=== PATIENT | female | born 1945 | race Caucasian/White ===

== ENCOUNTER 2024-02-20 19:23 | Inpatient (IN) | payer OTHER ==
[2024-02-20] MEDS ORDERED: ONDANSETRON 4 MG/2 ML VIAL ONE (20:38)
[2024-02-20] MEDS ORDERED: MORPHINE 2 MG/ML SYR ONE (20:39)
[2024-02-20] MEDS ORDERED: NA CHLORIDE 0.9% 500 ML ONE (20:39)
[2024-02-20 20:53] LABS: Absolute Eosinophils 0.3 K/uL (0-0.5); Absolute Lymphocytes (CBC) 0.8 K/uL (0.7-4.9); Absolute Monocytes 1.2 K/uL (0.1-1.3); Absolute Neutrophil 16.8 K/uL (1.8-8.0); Eosinophils % 1.6 % (0-4.4); Hematocrit 48.5 % (36.0-45.0); Hemoglobin 16.2 g/dL (12.0-15.0); MCH 30.9 pg (27.0-35.0); MCHC 33.4 g/dL (32.0-36.0); MCV 92.7 fL (80-100); MPV 7.4 fL (7.6-11.3); Monocytes % 6.3 % (3.3-12.3); Neutrophils % 88.1 % (41.7-73.7); Platelets 341 thou/uL (152-406); RBC Red Blood Cell Count 5.24 M/uL (3.86-4.86); Red Cell Distribution Width 14.4 % (12.1-15.2)
[2024-02-20 21:14] LABS: Albumin 3.2 g/dL (3.4-5.0); Albumin/Globulin Ratio 0.7 (1.1-1.8); Anion Gap 11.5 mEq/L (5.0-15.0); Bilirubin Total 0.4 mg/dL (0.2-1.0); Globulin 4.6 g/dL (2.3-3.5); Potassium 3.5 mEq/L (3.5-5.1); Protein, Total 7.8 g/dL (6.4-8.2)
--- NOTE | 2024-02-20 23:42 | RAD REPORT ---
EXAM DESCRIPTION: Abdomen Pelvis W Contrast CLINICAL HISTORY: 78 years Female Abdominal pain. COMPARISON: None. TECHNIQUE: Images were obtained in axial, coronal and sagittal planes. Intravenous contrast administration. This exam was performed according to our departmental dose-optimization program which includes use of Automated Exposure Control, adjustment of the mA and/or kV according to patient size and/or use of it erative reconstruction technique. FINDINGS: Artifact in the region of right lobe of liver related to positioning of the upper extremities. No vis ualization of gallbladder likely prior cholecystectomy. Mild intrahepatic biliary dilatation centrally. Marked extrahepatic biliary dilatation. Common hepatic duct measures 2 cm. Common bile bernice t measures 1.9 cm proximally. No dilatation pancreatic duct. Tiny pancreatic cysts. Enhancing nodular foci seen involving this spleen. The largest measures 1.6 cm. The findings may be related to multiple hemangiomas however hypervascular metastatic lesions not excluded. Unremarkable portal vein. No obstructing renal or ureteral calculi bilaterally. No hydronephrosis bilaterally. Bladder divertic philip anteriorly. Deviation uterus to the right. Possible fluid within endometrial cavity. 2 cm right ovarian cyst. This finding is thought to be benign. No further follow-up needed. Appendix not well identified however no secondary signs for appendicitis. No bowel obstruction, perfo ration, or inflammation. Marked constipation distal left colon. No acute osseous abnormality. Superior endplate depression of T8, T11, and T12 vertebral bodies consi stent with compression fractures of indeterminate age. Chronic parenchymal stranding lower lungs bilaterally. No dilatation of the abdominal aorta. Vascular calcification. No adenopathy or abnormal fluid collect ions seen. IMPRESSION: 1. Marked extrahepatic biliary dilatation. Suspected prior cholecystectomy. Correlation with MRCP w ould be suggested to further exclude choledocholithiasis or stricture. 2. Multiple enhancing nodular foci involving the spleen. The findings may be related to multiple he mangiomas however hypervascular metastatic lesions not excluded. Correlation with magnetic resonance study of the spleen suggested for further characterization. 3. Possible fluid within endometrial cavity. Correlation with pelvic ultrasound suggested for furth er characterization. 4. Marked constipation distal left colon. Electronically signed by: Madeline Ng MD 02/20/2024 11:38 PM [facility] Due to temporary technical issues with the PACS/Urgent Career reporting system, reports are being desire d by the in-house radiologist without review as a courtesy to ensure prompt reporting the interpreting radiologist is fully responsible for the content of the report. Transcribed Date/Time: 02/20/2024 11:42 PM
[2024-02-20 23:54] LABS: Sqamous Epithelial <5 /HPF (None Seen); Urine Bacteria None Seen /HPF (<20); Urine Bilirubin NEGATIVE (Negative); Urine Blood Trace (Negative); Urine Clarity Clear (Clear); Urine Color Colorless (Yellow); Urine Culture Reflex Order NOT NEEDED; Urine Glucose NEGATIVE (Negative); Urine Ketones NEGATIVE (Negative); Urine Microscopic Reflex YN ORDER UMIC; Urine Mucus Slight /HPF (None Seen); Urine Nitrite NEGATIVE (Negative); Urine Protein NEGATIVE (Negative); Urine RBC None Seen /HPF (None Seen); Urine Urobilinogen Normal (Normal); Urine WBC <5 /HPF (<5); Urine pH 5.5 (5.0-7.0)
[2024-02-20 23:55] LABS: Specific Gravity > 1.030 (1.005-1.030)
--- NOTE | 2024-02-21 00:35 | ER ---
Nurse's Notes [facility] Name: Desi Gómez Age: 78 yrs Sex: Female : 1945 Arrival Date: 02/20/2024 Time: 19:23 Bed 14 Private MD: Diagnosis: Elevated white blood cell count;CBD dilation;Constipation Presentation: 02/19 19:23 Chief complaint: EMS states: Pt reports abdominal pain in the lower abdomen that jb4 started after lunch. 19:23 Coronavirus screen: At this time, the client does not indicate any symptoms associated jb4 with coronavirus-19. Ebola Screen: No symptoms or risks identified at this time. Initial Sepsis Screen: Does the patient meet any 2 criteria? HR > 90 bpm. Yes Does the patient have a suspected source of infection? No. Patient's initial sepsis screen is negative. Risk Assessment: Do you want to hurt yourself or someone else? Patient reports no desire to harm self or others. Onset of symptoms was February 20, 2024. Transition of care: patient was not received from another setting of care. 19:23 Method Of Arrival: EMS: [facility] jb4 19:23 Acuity: MACRINA 3 jb4 Historical: - Allergies: 19:23 PENICILLINS; jb4 - Immunization history:: Adult Immunizations up to date. - Infectious Disease History:: Denies. - Social history:: Smoking status: Patient denies any tobacco usage or history of. Screenin:30 [facility] ED Fall Risk Assessment (Adult) History of falling in the last 3 months, jb4 including since admission No falls in past 3 months (0 pts) Confusion or Disorientation No (0 pts) Intoxicated or Sedated No (0 pts) Impaired Gait No (0 pts) Mobility Assist Device Used No (0 pt) Altered Elimination No (0 pt) Score/Fall Risk Level 0 - 2 = Low Risk Oriented to surroundings, Maintained a safe environment. Abuse screen: Denies threats or abuse. Nutritional screening: No deficits noted. Tuberculosis screening: No symptoms or risk factors identified. Assessment: 19:23 General: Appears in no apparent distress. comfortable, Behavior is calm, cooperative, jb4 appropriate for age. Pain: Complains of pain in right lower quadrant Pain does not radiate. Pain currently is 7 out of 10 on a pain scale. Neuro: Level of Consciousness is awake, alert, obeys commands, Oriented to person, place, time, situation. Cardiovascular: Patient's skin is warm and dry. Respiratory: Airway is patent Respiratory effort is even, unlabored, Respiratory pattern is regular, symmetrical. GI: No signs and/or symptoms were reported involving the gastrointestinal system. : No signs and/or symptoms were reported regarding the genitourinary system. EENT: No signs and/or symptoms were reported regarding the EENT system. Derm: Skin is intact, Skin is pink, warm \T\ dry. 20:30 Reassessment: Patient appears in no apparent distress at this time. Patient and/or jb4 family updated on plan of care and expected duration. Pain level reassessed. Patient is alert, oriented x 3, equal unlabored respirations, skin warm/dry/pink. 21:38 Reassessment: Pt cleaned and brief changed. Small amount of nikkie blood vaginal jb4 discharge noted. Provider notified. 22:45 Reassessment: No changes from previously documented assessment. Patient and/or family br2 updated on plan of care and expected duration. Pain level reassessed. Patient is alert, oriented x 3, equal unlabored respirations, skin warm/dry/pink. 02/20 00:30 Reassessment: COLLECT URINE VIA STRAIGHT CATH. UPON CLEANING PATIENT'S VAGINAL br2 AREA,...THERE WAS BLOOD TINGED ON WIPE WHEN CLEANING. PUREWICK IN PLACE WITH LOW SUCTION TO WALL. 01:56 Reassessment: PROVIDER NOTIFED. br2 Vital Signs: 02/19 19:23 BP 133 / 69; Pulse 96; Resp 16; Temp 98.4(O); Pulse Ox 100% on R/A; Weight 59.87 kg jb4 (R); Height 5 ft. 1 in. (R); 23:15 BP 133 / 62; Pulse 88; Resp 18 S; Pulse Ox 95% on R/A; br2 02/20 02:03 BP 113 / 56; Pulse 76; Resp 18 S; Temp 97.2(TE); Pulse Ox 94% on R/A; br2 02/19 19:23 Body Mass Index 24.94 (59.87 kg, 154.94 cm) jb4 ED Course: 02/19 19:23 Patient arrived in ED. jb4 19:23 Mariana Sanchez FNP-C is PHCP. kb 19:23 Daniele Mason MD is Attending Physician. kb 20:10 Missed attempt(s): 20 gauge in right forearm. 22 gauge in right forearm. Bleeding jb4 controlled, band aid applied, catheter tip intact. 20:15 Triage completed. jb4 20:30 Patient has correct armband on for positive identification. Bed in low position. Call jb4 light in reach. Side rails up X 1. Provided Education on: plan of care. 20:46 Robbin Joe, RN is Primary Nurse. jb4 22:48 CT Abd/Pelvis - IV Contrast Only In Process Unspecified. EDMS 02/20 00:34 Benedict Pedroza MD is Hospitalizing Provider. kb 02:57 No provider procedures requiring assistance completed. Patient admitted, IV remains in br2 place. Administered Medications: 02/19 20:58 Drug: Ondansetron IVP 4 mg IVP once; over 2 minutes Route: IVP; Site: right antecubital;jb4 22:00 Follow up: Response: No adverse reaction br2 20:58 Drug: morphine IVP or IV 2 mg IVP once over 4 mins Route: IVP; Infused Over: 4 mins; jb4 Site: right antecubital; 22:00 Follow up: Response: No adverse reaction br2 20:58 Drug: NS 0.9% IV 500 ml 500 ml IV at 1 bolus once; to be given as a bolus over 30 jb4 minutes Volume: 500 ml; Route: IV; Rate: 1 bolus; Site: right antecubital; 21:30 Follow up: IV Status: Completed infusion; IV Intake: 500ml br2 Medication: 20:30 VIS not applicable for this client. jb4 Intake: 21:30 IV: 500ml; Total: 500ml. br2 Outcome: 02/20 00:34 Decision to Hospitalize by Provider. kb 02:57 Admitted to Med/surg accompanied by tech, via stretcher, br2 02:57 Condition: improved 02:57 Instructed on the need for admit, Demonstrated understanding of instructions, 02:58 Patient left the ED. br2 Signatures: Dispatcher [employer] EDMA Mariana Sanchez, RAMESH SALES OFFICE COORDINATOR-Robbin Rivas RN RN jb4 Nikia Gomez RN RN br2
--- NOTE | 2024-02-21 00:35 | EDPHYS ---
Physician Documentation [facility] Name: Desi Gómez Age: 78 yrs Sex: Female : 1945 Arrival Date: 02/20/2024 Time: 19:23 Bed 14 Private MD: ED Physician Daniele Mason HPI: 02/19 22:13 This 78 yrs old Female presents to ER via EMS with complaints of Abdominal Pain. kb 22:13 Pt is a 78 year old female who presents for RLQ pain and nausea that started after kb lunch. Denies fever, vomiting, diarrhea. No alleviating or aggravating factors. . Historical: - Allergies: 19:23 PENICILLINS; jb4 - Immunization history:: Adult Immunizations up to date. - Infectious Disease History:: Denies. - Social history:: Smoking status: Patient denies any tobacco usage or history of. ROS: 22:14 Constitutional: As per HPI kb Exam: 22:14 Constitutional: This is a well developed, well nourished patient who is awake, alert, kb and in no acute distress. Head/Face: Normocephalic, atraumatic. ENT: Moist Mucous membranes Cardiovascular: Regular rate Respiratory: Respirations even and unlabored. No increased work of breathing. Talking in full sentences Skin: Warm, dry with normal turgor. Normal color. MS/ Extremity: Pulses equal, no cyanosis. Neurovascular intact. Full, normal range of motion. Neuro: Awake and alert, GCS 15, oriented to person, place, time, and situation. 22:14 Abdomen/GI: Inspection: abdomen appears normal, Bowel sounds: normal, Palpation: soft, in all quadrants, moderate abdominal tenderness, in the right lower quadrant, Vital Signs: 19:23 BP 133 / 69; Pulse 96; Resp 16; Temp 98.4(O); Pulse Ox 100% on R/A; Weight 59.87 kg jb4 (R); Height 5 ft. 1 in. (R); 23:15 BP 133 / 62; Pulse 88; Resp 18 S; Pulse Ox 95% on R/A; br2 02/20 02:03 BP 113 / 56; Pulse 76; Resp 18 S; Temp 97.2(TE); Pulse Ox 94% on R/A; br2 02/19 19:23 Body Mass Index 24.94 (59.87 kg, 154.94 cm) jb4 MDM: 02/19 19:24 Medical Screening Exam initiated kb 22:14 Data reviewed: vital signs, nurses notes. 02/20 00:31 Differential diagnosis: appendicitis, non-specific abd pain, pancreatitis, urinary kb tract infection. 00:32 Consideration of Admission/Observation Patient was admitted/placed on observation. kb Escalation of care including admission/observation considered. Management of patient was discussed with the following: Hospitalist: Dr Pedroza accepts pt for admission. Historians other than the Patient: EMS: [facility]. Counseling: I had a detailed discussion with the patient and/or guardian regarding the historical points, exam findings, and any diagnostic results supporting the discharge/admit diagnosis, lab results, radiology results, the need for further work-up and treatment in the hospital. 02/19 19:24 Order name: CBC with Diff; Complete Time: 21:08 kb 02/19 19:24 Order name: CMP; Complete Time: 21:15 kb 02/19 19:24 Order name: Lipase; Complete Time: 21:15 kb 02/19 19:24 Order name: Urinalysis w/ reflexes; Complete Time: 23:56 kb 02/20 00:48 Order name: Urinalysis w/ reflexes EDMS 02/20 00:48 Order name: CBC with Automated Diff EDMS 02/20 00:48 Order name: CBC with Automated Diff EDMS 02/20 00:48 Order name: Comprehensive Metabolic Panel EDMS 02/20 00:48 Order name: Comprehensive Metabolic Panel EDMS 02/19 19:24 Order name: CT Abd/Pelvis - IV Contrast Only 02/19 19:24 Order name: IV Saline Lock; Complete Time: 21:27 kb 02/19 19:24 Order name: Labs collected and sent; Complete Time: 21:27 kb Administered Medications: 02/19 20:58 Drug: Ondansetron IVP 4 mg IVP once; over 2 minutes Route: IVP; Site: right antecubital;jb4 22:00 Follow up: Response: No adverse reaction br2 20:58 Drug: morphine IVP or IV 2 mg IVP once over 4 mins Route: IVP; Infused Over: 4 mins; jb4 Site: right antecubital; 22:00 Follow up: Response: No adverse reaction br2 20:58 Drug: NS 0.9% IV 500 ml 500 ml IV at 1 bolus once; to be given as a bolus over 30 jb4 minutes Volume: 500 ml; Route: IV; Rate: 1 bolus; Site: right antecubital; 21:30 Follow up: IV Status: Completed infusion; IV Intake: 500ml br2 Disposition Summary: 02/21/24 00:34 Hospitalization Ordered Notes: Hospitalization Status: Observation kb Provider: Benedict Pedroza Location: Telemetry/MedSurg (observation) kb Condition: Stable kb Problem: new kb Symptoms: are unchanged kb Bed/Room Type: Standard Room Assignment: 209(02/21/24 01:30) rv1 Diagnosis - Elevated white blood cell count kb - CBD dilation kb - Constipation kb Forms: - Medication Reconciliation Form kb - SBAR form kb - Leadership Thank You Letter kb Addendum: 02/23/2024 20:27 I was immediately available for consultation during this patient's visit. I did not e c2 personally see the patient or discuss the patient with the NURIA. . Signatures: Dispatcher [employer] Mariana Brown, SUPERVISOR PRESSING DEPARTMENT-C SUPERVISOR PRESSING DEPARTMENT-CkRobbin Rodrigues, RN RN jb4 Antonella Esteves rv1 Daniele Mason MD MD ec2 Nikia Gomez RN br2 Corrections: (The following items were deleted from the chart) 02/20 01:30 00:34 kb rv1
--- NOTE | 2024-02-21 01:21 | P.HP ---
Certification for Inpatient Patient admitted to: Observation With expected LOS: <2 Midnights Practitioner: I am a practitioner with admitting privileges, knowledge of patient current condition, hospital course, and medical plan of care. Services: Services provided to patient in accordance with Admission requirements found in Title 42 Section 412.3 of the Code of Federal Regulations Patient History Date of Service: 02/21/24 Reason for admission: Abdominal pain History of Present Illness: 78 yrs old Female with past medical history of hypertension, hyperlipidemia , history of CVA , history of fall status post fusion of spine presents to ER with complaints of Abdominal Pain. Pain is located mostly in the right lower quadrant associated with nausea started after lunch. Cramping in type. Intermittent. Denies fever, vomiting, diarrhea. No alleviating or aggravating factors. Has a previous history of cholecystectomy. Patient was seen in the ER and was had a CT which showed dilated CBD and was admitted for further management. Allergies Unable to Assess Allergy (Unverified 02/21/24 00:52) Home medications list reviewed: Yes Home Medications: Acetaminophen [Tylenol Extra Strength] 1,000 mg PO Q8HP PRN 02/21/24 Ascorbic Acid [Vitamin C] 500 mg PO BID 02/21/24 Aspirin Chewable [Aspirin Chewable*] 81 mg PO DAILY 02/21/24 Atorvastatin Calcium [Lipitor] 20 mg PO BEDTIME 02/21/24 Buspirone HCl 15 mg PO BID 02/21/24 Buspirone HCl [Buspar] 5 mg PO BID 02/21/24 Calcium Carbonate [Tums Regular] 500 mg PO AC 02/21/24 Carboxymethylcellulose Sodium [Artificial Tears] 2 drops EACH EYE DAILY 02/21/24 Clopidogrel Bisulfate [Plavix] 75 mg PO DAILY 02/21/24 Divalproex Sodium 250 mg PO TID 02/21/24 Divalproex Sodium [Depakote] 125 mg PO TID 02/21/24 Isosorbide Dinitrate 30 mg PO DAILY 02/21/24 Lactulose [Cephulac] 20 gm PO DAILY 02/21/24 Lidocaine 4% Patch [Lidoderm 5% Patch] 1 patch TD DAILY 02/21/24 Lidocaine 4% Patch [Lidoderm 5% Patch] 1 patch TD Q12HP PRN 02/21/24 Multivitamin with Minerals [One Daily Plus Minerals] 1 each PO DAILY 02/21/24 Ondansetron HCl 4 mg PO Q8HP PRN 02/21/24 PHENYTOIN ER Cap [Dilantin ER Cap] 100 mg PO BID 02/21/24 Potassium Chloride 20 meq PO BID 02/21/24 Promethazine Tab [Phenergan] 25 mg PO Q6HP PRN 02/21/24 Sertraline [Zoloft] 200 mg PO DAILY 02/21/24 Spironolactone [Aldactone] 25 mg PO DAILY 02/21/24 levETIRAcetam [Keppra Tab] 500 mg PO BID 02/21/24 traMADol HCL [Ultram] 50 mg PO Q12HP PRN 02/21/24 - Past Medical/Surgical History Past Medical History: Reviewed- Non-Contributory -: Hypertension, hyperlipidemia, history of CVA Past Surgical History: Reviewed- Non-Contributory -: Cholecystectomy - Family History Family History: Reviewed- Non-Contributory - Social History Smoking Status: Never smoker Review of Systems 10-point ROS is otherwise unremarkable Physical Examination - Vital Signs Temperature: 97.8 F Blood Pressure: 138/76 Pulse: 74 Respirations: 18 Pulse Ox (%): 96 - Physical Exam General: Alert, In no apparent distress, Cooperative HEENT: Atraumatic, Normocephalic Neck: Supple, No Thyromegaly Respiratory: Clear to auscultation bilaterally, Normal air movement Cardiovascular: No edema, Regular rate/rhythm, Normal S1 S2 Capillary refill: <2 Seconds Gastrointestinal: Soft and benign, W/out hepatosplenomegaly, Other (Right Lower quadrant tenderness), Tenderness Musculoskeletal: No clubbing, No swelling Integumentary: No rashes Neurological: Other (Alert, Awake ) Lymphatics: No axilla or inguinal lymphadenopathy - Studies Laboratory Data (last 24 hrs) 02/20/24 02/20/24 20:40 20:40 WBC 19.10 H Hgb 16.2 H Hct 48.5 H Plt Count 341 Sodium 140 Potassium 3.5 BUN 18 Creatinine 0.53 L Glucose 122 H Total Bilirubin 0.4 AST 18 ALT 19 Alkaline Phosphatase 92 Lipase 20 Assessment and Plan - Plan Intractable abdominal pain Dilated CBD Constipation Right lower quadrant pain CT findings noted Marked extrahepatic biliary dilatation. Suspected prior cholecystectomy. MRCP to further exclude choledocholithiasis or stricture. Multiple enhancing nodular foci involving the spleen. Possible multiple hemangiomas however hypervascular metastatic lesions not excluded. magnetic resonance study of the spleen for further characterization. Possible fluid within endometrial cavity. pelvic ultrasound Awaiting further clinical improvement Marked constipation distal left colon Started on lactulose Hypertension Antihypertensives titrated Continue home medications and titrate as needed Hyperlipidemia Continue statin GI/DVT prophylaxis Advanced directive full code Discharge Plan: Detention Plan to discharge in: 48 Hours - Advance Directives Does patient have a Living Will: No Does patient have a Durable POA for Healthcare: No - Code Status/Comfort Care Code Status: Full Code Time Spent Managing Pts Care (In Minutes): 48
[2024-02-21] MEDS: D5 0.45 NS 1,000 ML IV SCH (05:03)
[2024-02-21 05:13] VITALS: BMI 24.9
--- NOTE | 2024-02-21 08:21 | RAD REPORT ---
EXAMINATION: US PELVIS TRANSABDOMINAL WITH DOPPLER CLINICAL INDICATION: Abdominal Pain TECHNIQUE: Real-time ultrasonography of the pelvis was performed transabdominally. Color and spectral Doppler evaluation of the ovaries was performed. COMPARISON: CT dated 02/20/2024 FINDINGS: UTERUS AND CERVIX: The uterus measures 7.9 x 3.9 x 3.8 cm (cervix to fundus x AP x transverse). Numerous calcifications are seen in the myometrium. The endometrium appears to contain internal fluid. The major thickness is 7 mm. The right ovary is not well seen due to bowel gas. LEFT OVARY: Normal The left ovary measures 2.0 x 1.7 x 1.6 cm. Normal Color and spectral Doppler ev aluation of the left ovary.. FREE FLUID: No free fluid. ADDITIONAL FINDINGS: IMPRESSION: Nonvisualized right ovary due to bowel gas. Endometrial dilatation suspected with fluid. In this age group this is potentially pathologic. Follow -up hysteroscopy assessment would be advised.
[2024-02-21 08:22] LABS: Absolute Basophils 0.1 K/uL (0-0.5); Absolute Eosinophils 0.2 K/uL (0-0.5); Absolute Lymphocytes (CBC) 2.1 K/uL (0.7-4.9); Absolute Monocytes 1.1 K/uL (0.1-1.3); Basophils % 0.7 % (0-1.3); Eosinophils % 1.9 % (0-4.4); Hematocrit 38.6 % (36.0-45.0); Hemoglobin 13.3 g/dL (12.0-15.0); Lymphocytes % 18.7 % (15.3-44.8); MCH 31.6 pg (27.0-35.0); MCHC 34.5 g/dL (32.0-36.0); MCV 91.6 fL (80-100); MPV 7.2 fL (7.6-11.3); Monocytes % 9.6 % (3.3-12.3); Neutrophils % 69.1 % (41.7-73.7); Nucleated Red Blood Cells % 0.1 % (0-0); Platelets 310 thou/uL (152-406); RBC Red Blood Cell Count 4.22 M/uL (3.86-4.86); Red Cell Distribution Width 14.5 % (12.1-15.2)
[2024-02-21] MEDS: CEFTRIAXONE 1,000 MG in NA CHLORIDE 0.9% 50 ML IVPB SCH (08:34)
[2024-02-21 08:35] LABS: Albumin 2.3 g/dL (3.4-5.0); Albumin/Globulin Ratio 0.6 (1.1-1.8); Alkaline Phosphatase 68 U/L (45-117); Anion Gap 7.5 mEq/L (5.0-15.0); BUN Blood Urea Nitrogen 12 mg/dL (7-18); Bicarbonate 26 mEq/L (21-32); Bilirubin Total 0.4 mg/dL (0.2-1.0); Globulin 3.7 g/dL (2.3-3.5); Glomerular Filtration Rate 102 ml/min (=/>90); Glucose Level 119 mg/dL (74-106); Lipase 15 U/L (13-75); Potassium 3.5 mEq/L (3.5-5.1); Sodium Level 141 mEq/L (136-145)
[2024-02-21] MEDS: ENOXAPARIN 40 MG/0.4 ML SQ SCH (09:00)
[2024-02-21 09:14] LABS: ALT/SGPT < 14 U/L (13-56); AST/SGOT < 10 U/L (15-37)
--- NOTE | 2024-02-21 14:55 | RAD REPORT ---
EXAMINATION: MR CHOLANGIOGRAM CLINICAL INDICATION: Abdominal pain TECHNIQUE: Magnetic resonance cholangiopancreatogram was performed. 3D MIP reconstruction done. COMPARISON: CT abdomen February 20, 2024 FINDINGS: Cholecystectomy. Marked dilatation of the common hepatic and common bile ducts. Abrupt transition to a small distal common bile duct. No periampullary mass visualized. Normal pancreatic duct. Splenic lesions are again demonstrated. Further evaluation with ultrasound may be helpful IMPRESSION: Marked dilatation of the common bile common hepatic ducts secondary to stricture
[2024-02-21] MEDS: MORPHINE 2 MG/ML SYR IV PRN (19:37)
[2024-02-21] MEDS: HYDROCODONE/APAP 5/325 MG TAB PO PRN (23:29)
[2024-02-21] MEDS: ONDANSETRON 4 MG/2 ML VIAL IV PRN (23:35)
[2024-02-22 04:56] LABS: Absolute Basophils 0.1 K/uL (0-0.5); Absolute Eosinophils 0.2 K/uL (0-0.5); Absolute Lymphocytes (CBC) 1.8 K/uL (0.7-4.9); Absolute Monocytes 0.7 K/uL (0.1-1.3); Absolute Neutrophil 5.3 K/uL (1.8-8.0); Basophils % 0.8 % (0-1.3); Eosinophils % 2.8 % (0-4.4); Hematocrit 37.7 % (36.0-45.0); Hemoglobin 13.2 g/dL (12.0-15.0); Lymphocytes % 21.9 % (15.3-44.8); MCH 32.2 pg (27.0-35.0); MCHC 35.1 g/dL (32.0-36.0); MCV 91.9 fL (80-100); MPV 7.3 fL (7.6-11.3); Monocytes % 8.8 % (3.3-12.3); Neutrophils % 65.7 % (41.7-73.7); Nucleated Red Blood Cells % 0.1 % (0-0); Platelets 298 thou/uL (152-406); Red Cell Distribution Width 14.2 % (12.1-15.2)
[2024-02-22 05:07] LABS: AST/SGOT 11 U/L (15-37); Albumin 2.3 g/dL (3.4-5.0); Albumin/Globulin Ratio 0.6 (1.1-1.8); Alkaline Phosphatase 68 U/L (45-117); Anion Gap 7.5 mEq/L (5.0-15.0); BUN Blood Urea Nitrogen 13 mg/dL (7-18); Bicarbonate 26 mEq/L (21-32); Bilirubin Total 0.3 mg/dL (0.2-1.0); Globulin 3.7 g/dL (2.3-3.5); Glomerular Filtration Rate 104 ml/min (=/>90); Glucose Level 97 mg/dL (74-106); Potassium 3.5 mEq/L (3.5-5.1); Sodium Level 141 mEq/L (136-145)
[2024-02-22 05:09] LABS: ALT/SGPT < 14 U/L (13-56)
[2024-02-22] MEDS: ACETAMINOPHEN 325 MG TABLET PO PRN (08:30)
[2024-02-22] MEDS: POTASSIUM CL SA 10 MEQ TAB PO ONE (08:31)
[2024-02-22 09:53] VITALS: O2SAT 96
[2024-02-22 11:57] VITALS: BP 138/60; TEMP 98.3
--- NOTE | 2024-02-22 13:20 | P.DS ---
Admission Date: 02/21/24 Discharge Date: 02/22/24 Disposition: TRANSFER TO [facility] Discharge Condition: GOOD Reason for Admission: Abdominal pain Brief History of Present Illness: 78 yrs old Female with past medical history of hypertension, hyperlipidemia , history of CVA , history of fall status post fusion of spine presents to ER with complaints of Abdominal Pain. Pain is located mostly in the right lower quadrant associated with nausea started after lunch. Cramping in type. Intermittent. Denies fever, vomiting, diarrhea. No alleviating or aggravating factors. Has a previous history of cholecystectomy. Patient was seen in the ER and was had a CT which showed dilated CBD and was admitted for further management. Hospital Course: Problem list Intractable abdominal pain Dilated CBD Constipation Right lower quadrant pain Multiple enhancing nodular foci involving the spleen. Possible fluid within endometrial cavity. Marked constipation distal left colon Hypertension Hyperlipidemia Patient was admitted to the hospital for abdominal pain, her CT abdomen pelvis showed marked extrahepatic biliary dilatation with prior cholecystectomy. Also noted multiple enhancing nodular foci seen in the spleen which may be related to hemangiomas however metastatic lesions are not excluded. Possible fluid within the endometrial cavity. Correlation with pelvic ultrasound suggested. MRCP was performed which showed marked dilatation of the common bile duct, common hepatic duct secondary to stricture with abrupt transition to small distal common bile duct. Pelvic ultrasound showed endometrial dilatation suspected with fluid. In this age group this is potentially pathologic. Follow-up hysteroscopy would be advised. Patient's abdominal pain resolved overnight, she has been tolerating a regular diet. Her LFTs, T. bili, lipase are all normal and have been for 3 days. Case was discussed with GI who recommended obtaining a CA 199 antigen to be sent off prior to discharge on 02/21 which will take 5-7 business days to result and follow-up with him outpatient for further evaluation of the extrahepatic, CBD dilatation with stricture. Information for Dr. Brown's office provided in discharge packet. Splenic lesions were again demonstrated on the MRI, further evaluation with ultrasound of the spleen can be made outpatient. Patient will also need to follow-up with gynecology to arrange for possible hysteroscopy given pelvic ultrasound showing endometrial dilatation with suspected fluid which could be pathologic. These findings were discussed with patient's daughter Ms. Weeks. Patient has remained afebrile throughout hospitalization and is stable for discharge back to [facility] where she resides at this time. Recommend repeat CMP in 1 week to evaluate LFTs, T. bili. Continue home medications as previously prescribed If patient begins to experience return or worsening of abdominal symptoms return to hospital for further evaluation. CT abdomen pelvis 02/19 Artifact in the region of right lobe of liver related to positioning of the upper extremities. No visualization of gallbladder likely prior cholecystectomy. Mild intrahepatic biliary dilatation centrally. Marked extrahepatic biliary dilatation. Common hepatic duct measures 2 cm. Common bile duct measures 1.9 cm proximally. No dilatation pancreatic duct. Tiny pancreatic cysts. Enhancing nodular foci seen involving this spleen. The largest measures 1.6 cm. The findings may be related to multiple hemangiomas however hypervascular metastatic lesions not excluded. Unremarkable portal vein. No obstructing renal or ureteral calculi bilaterally. No hydronephrosis bilaterally. Bladder diverticula anteriorly. Deviation uterus to the right. Possible fluid within endometrial cavity. 2 cm right ovarian cyst. This finding is thought to be benign. No further follow-up needed. Appendix not well identified however no secondary signs for appendicitis. No bowel obstruction, perforation, or inflammation. Marked constipation distal left colon. No acute osseous abnormality. Superior endplate depression of T8, T11, and T12 vertebral bodies consistent with compression fractures of indeterminate age. Chronic parenchymal stranding lower lungs bilaterally. No dilatation of the abdominal aorta. Vascular calcification. No adenopathy or abnormal fluid collections seen. IMPRESSION: 1. Marked extrahepatic biliary dilatation. Suspected prior cholecystectomy. Correlation with MRCP would be suggested to further exclude choledocholithiasis or stricture. 2. Multiple enhancing nodular foci involving the spleen. The findings may be related to multiple hemangiomas however hypervascular metastatic lesions not excluded. Correlation with magnetic resonance study of the spleen suggested for further characterization. 3. Possible fluid within endometrial cavity. Correlation with pelvic ultrasound suggested for further characterization. 4. Marked constipation distal left colon. MRCP 02/20 FINDINGS: Cholecystectomy. Marked dilatation of the common hepatic and common bile ducts. Abrupt transition to a small distal common bile duct. No periampullary mass visualized. Normal pancreatic duct. Splenic lesions are again demonstrated. Further evaluation with ultrasound may be helpful IMPRESSION: Marked dilatation of the common bile common hepatic ducts secondary to stricture Pelvic ultrasound 02/19 UTERUS AND CERVIX: The uterus measures 7.9 x 3.9 x 3.8 cm (cervix to fundus x AP x transverse). Numerous calcifications are seen in the myometrium. The endometrium appears to contain internal fluid. The major thickness is 7 mm. The right ovary is not well seen due to bowel gas. LEFT OVARY: Normal The left ovary measures 2.0 x 1.7 x 1.6 cm. Normal Color and spectral Doppler evaluation of the left ovary.. FREE FLUID: No free fluid. ADDITIONAL FINDINGS: IMPRESSION: Nonvisualized right ovary due to bowel gas. Endometrial dilatation suspected with fluid. In this age group this is potentially pathologic. Follow-up hysteroscopy assessment would be advised. Vital Signs/Physical Exam: Temp Pulse Resp BP Pulse Ox 98.3 F 90 12 138/60 96 02/22/24 11:55 02/22/24 11:55 02/22/24 11:55 02/22/24 11:55 02/22/24 11:55 General: Alert, In no apparent distress, Oriented x3 HEENT: Atraumatic, PERRLA Neck: Supple, JVD not distended Respiratory: Clear to auscultation bilaterally, Normal air movement Cardiovascular: Regular rate/rhythm, Normal S1 S2 Gastrointestinal: Normal bowel sounds, No tenderness Musculoskeletal: No tenderness, Contractures (Left arm contracted) Integumentary: No rashes Neurological: Normal speech, Normal tone, Normal affect Laboratory Data at Discharge: WBC 8.00 thou/uL (4.3-10.9) 02/22/24 04:28 Hgb 13.2 g/dL (12.0-15.0) 02/22/24 04:28 Hct 37.7 % (36.0-45.0) 02/22/24 04:28 Plt Count 298 thou/uL (152-406) 02/22/24 04:28 Sodium 141 mEq/L (136-145) 02/22/24 04:28 Potassium 3.5 mEq/L (3.5-5.1) 02/22/24 04:28 BUN 13 mg/dL (7-18) 02/22/24 04:28 Creatinine 0.35 mg/dL (0.55-1.02) L 02/22/24 04:28 Glucose 97 mg/dL (74-106) 02/22/24 04:28 Total Bilirubin 0.3 mg/dL (0.2-1.0) 02/22/24 04:28 AST 11 U/L (15-37) L 02/22/24 04:28 ALT < 14 U/L (13-56) 02/22/24 04:28 Alkaline Phosphatase 68 U/L (45-117) 02/22/24 04:28 Lipase 15 U/L (13-75) 02/21/24 08:08 Home Medications: Acetaminophen [Tylenol Extra Strength] 1,000 mg PO Q8HP PRN 02/21/24 Ascorbic Acid [Vitamin C] 500 mg PO BID 02/21/24 Aspirin Chewable [Aspirin Chewable*] 81 mg PO DAILY 02/21/24 Atorvastatin Calcium [Lipitor] 20 mg PO BEDTIME 02/21/24 Buspirone HCl 15 mg PO BID 02/21/24 Buspirone HCl [Buspar] 5 mg PO BID 02/21/24 Calcium Carbonate [Tums Regular] 500 mg PO AC 02/21/24 Carboxymethylcellulose Sodium [Artificial Tears] 2 drops EACH EYE DAILY 02/21/24 Clopidogrel Bisulfate [Plavix] 75 mg PO DAILY 02/21/24 Divalproex Sodium 250 mg PO TID 02/21/24 Divalproex Sodium [Depakote] 125 mg PO TID 02/21/24 Isosorbide Dinitrate 30 mg PO DAILY 02/21/24 Lactulose [Cephulac] 20 gm PO DAILY 02/21/24 Lidocaine 4% Patch [Lidoderm 5% Patch] 1 patch TD DAILY 02/21/24 Lidocaine 4% Patch [Lidoderm 5% Patch] 1 patch TD Q12HP PRN 02/21/24 Multivitamin with Minerals [One Daily Plus Minerals] 1 each PO DAILY 02/21/24 Ondansetron HCl 4 mg PO Q8HP PRN 02/21/24 PHENYTOIN ER Cap [Dilantin ER Cap] 100 mg PO BID 02/21/24 Potassium Chloride 20 meq PO BID 02/21/24 Promethazine Tab [Phenergan] 25 mg PO Q6HP PRN 02/21/24 Sertraline [Zoloft] 200 mg PO DAILY 02/21/24 Spironolactone [Aldactone] 25 mg PO DAILY 02/21/24 levETIRAcetam [Keppra Tab] 500 mg PO BID 02/21/24 traMADol HCL [Ultram] 50 mg PO Q12HP PRN 02/21/24 Physician Discharge Instructions: Patient was admitted to the hospital for abdominal pain, her CT abdomen pelvis showed marked extrahepatic biliary dilatation with prior cholecystectomy. Also noted multiple enhancing nodular foci seen in the spleen which may be related to hemangiomas however metastatic lesions are not excluded. Possible fluid within the endometrial cavity. Correlation with pelvic ultrasound suggested. MRCP was performed which showed marked dilatation of the common bile duct, common hepatic duct secondary to stricture with abrupt transition to small distal common bile duct. Pelvic ultrasound showed endometrial dilatation suspected with fluid. In this age group this is potentially pathologic. Follow-up hysteroscopy would be advised. Patient's abdominal pain resolved overnight, she has been tolerating a regular diet. Her LFTs, T. bili, lipase are all normal and have been for 3 days. Case was discussed with GI who recommended obtaining a CA 199 antigen to be sent off prior to discharge on 02/21 which will take 5-7 business days to result and follow-up with him outpatient for further evaluation of the extrahepatic, CBD dilatation with stricture. Information for Dr. Brown's office provided in discharge packet. Splenic lesions were again demonstrated on the MRI, further evaluation with ultrasound of the spleen can be made outpatient. Patient will also need to follow-up with gynecology to arrange for possible hysteroscopy given pelvic ultrasound showing endometrial dilatation with suspected fluid which could be pathologic. These findings were discussed with patient's daughter Ms. Weeks. Patient has remained afebrile throughout hospitalization and is stable for discharge back to [facility] where she resides at this time. Recommend repeat CMP in 1 week to evaluate LFTs, T. bili. Continue home medications as previously prescribed If patient begins to experience return or worsening of abdominal symptoms return to hospital for further evaluation. CT abdomen pelvis 02/19 Artifact in the region of right lobe of liver related to positioning of the upper extremities. No visualization of gallbladder likely prior cholecystectomy. Mild intrahepatic biliary dilatation centrally. Marked extrahepatic biliary dilatation. Common hepatic duct measures 2 cm. Common bile duct measures 1.9 cm proximally. No dilatation pancreatic duct. Tiny pancreatic cys ts. Enhancing nodular foci seen involving this spleen. The largest measures 1.6 cm. The findings may be related to multiple hemangiomas however hypervascular metastatic lesions not excluded. Unremarkable portal vein. No obstructing renal or ureteral calculi bilaterally. No hydronephrosis bilaterally. Bladder diverticula anteriorly. Deviation uterus to the right. Possible fluid within endometrial cavity. 2 cm right ovarian cyst. This finding is thought to be benign. No further follow-up needed. Appendix not well identified however no secondary signs for appendicitis. No bowel obstruction, perforation, or inflammation. Marked constipation distal left colon. No acute osseous abnormality. Superior endplate depression of T8, T11, and T12 vertebral bodies consistent with compression fractures of indeterminate age. Chronic parenchymal stranding lower lungs bilaterally. No dilatation of the abdominal aorta. Vascular calcification. No adenopathy or abnormal fluid collections seen. IMPRESSION: 1. Marked extrahepatic biliary dilatation. Suspected prior cholecystectomy. Correlation with MRCP would be suggested to further exclude choledocholithiasis or stricture. 2. Multiple enhancing nodular foci involving the spleen. The findings may be related to multiple hemangiomas however hypervascular metastatic lesions not excluded. Correlation with magnetic resonance study of the spleen suggested for further characterization. 3. Possible fluid within endometrial cavity. Correlation with pelvic ultrasound suggested for further characterization. 4. Marked constipation distal left colon. MRCP 02/20 FINDINGS: Cholecystectomy. Marked dilatation of the common hepatic and common bile ducts. Abrupt transition to a small distal common bile duct. No periampullary mass visualized. Normal pancreatic duct. Splenic lesions are again demonstrated. Further evaluation with ultrasound may be helpful IMPRESSION: Marked dilatation of the common bile common hepatic ducts secondary to stricture Pelvic ultrasound 02/19 UTERUS AND CERVIX: The uterus measures 7.9 x 3.9 x 3.8 cm (cervix to fundus x AP x transverse). Numerous calcifications are seen in the myometrium. The endometrium appears to contain internal fluid. The major thickness is 7 mm. The right ovary is not well seen due to bowel gas. LEFT OVARY: Normal The left ovary measures 2.0 x 1.7 x 1.6 cm. Normal Color and spectral Doppler evaluation of the left ovary.. FREE FLUID: No free fluid. ADDITIONAL FINDINGS: IMPRESSION: Nonvisualized right ovary due to bowel gas. Endometrial dilatation suspected with fluid. In this age group this is potentially pathologic. Follow-up hysteroscopy assessment would be advised. Diet: Regular Activity: Fall precautions Followup: [facility] [Primary Care Provider] - 1 Week Ad Pal MD [ASSOCIATE-ACTIVE - CAN ADMIT] - 1-2 Weeks Time spent managing pt's care (in minutes): 45
== END 2024-02-22 14:28 | DRG 445 ==
LOC: ER 19:23 → ERHOLD 02-21 00:43 → 2ND 02-21 02:35 → OBSVTOIN 02-21 16:07
PROVIDERS: ADMIT Family Medicine; ATTEND Hospitalist
DX: K83.8 Other specified diseases of biliary tract (principal); K86.2 Cyst of pancreas; K59.00 Constipation, unspecified; I10 Essential (primary) hypertension; E78.5 Hyperlipidemia, unspecified; N83.201 Unspecified ovarian cyst, right side; D72.829 Elevated white blood cell count, unspecified; D73.89 Other diseases of spleen; D18.09 Hemangioma of other sites; K83.1 Obstruction of bile duct; M48.54XD Collapsed vertebra, not elsewhere classified, thoracic region, subsequent encounter for fracture with routine healing; Z88.0 Allergy status to penicillin; Z86.73 Personal history of transient ischemic attack (TIA), and cerebral infarction without residual deficits; Z90.49 Acquired absence of other specified parts of digestive tract; Z79.82 Long term (current) use of aspirin; Z79.02 Long term (current) use of antithrombotics/antiplatelets; Z79.899 Other long term (current) drug therapy
CPT/HCPCS: 36415; 74177; 74181; 76856; 80053; 81001; 83690; 85025; 86301; 94760; G0378; J0696; J1650; J2270; J2405; J7040; J7799; Q9967

== ENCOUNTER 2024-06-03 16:10 | Emergency (ER) | payer OTHER ==
[2024-06-03] MEDS ORDERED: PANTOPRAZOLE 40 MG INJ ONE (16:44)
[2024-06-03] MEDS ORDERED: PANTOPRAZOLE INJ 80 MG in NA CHLORIDE 0.9% 250 ML IV SCH (17:00)
[2024-06-03 17:10] LABS: Absolute Basophils 0.1 K/uL (0-0.5); Absolute Eosinophils 0.1 K/uL (0-0.5); Absolute Monocytes 1.8 K/uL (0.1-1.3); Basophils % 0.8 % (0-1.3); Eosinophils % 0.5 % (0-4.4); Hematocrit 45.7 % (36.0-45.0); Hemoglobin 15.4 g/dL (12.0-15.0); Lymphocytes % 12.4 % (15.3-44.8); MCH 31.5 pg (27.0-35.0); MCHC 33.8 g/dL (32.0-36.0); MCV 93.2 fL (80-100); MPV 7.5 fL (7.6-11.3); Neutrophils % 75.3 % (41.7-73.7); Nucleated Red Blood Cells % 0.1 % (0-0); Platelets 275 thou/uL (152-406)
[2024-06-03 18:31] LABS: ALT/SGPT < 14 U/L (13-56); AST/SGOT 11 U/L (15-37); Albumin 2.7 g/dL (3.4-5.0); Albumin/Globulin Ratio 0.7 (1.1-1.8); Alkaline Phosphatase 85 U/L (45-117); Anion Gap 9.6 mEq/L (5.0-15.0); BUN Blood Urea Nitrogen 15 mg/dL (7-18); Bicarbonate 23 mEq/L (21-32); Bilirubin Total 0.6 mg/dL (0.2-1.0); Globulin 3.9 g/dL (2.3-3.5); Glomerular Filtration Rate 99 ml/min (=/>90); Glucose Level 117 mg/dL (74-106); Lipase 11 U/L (13-75); Potassium 3.6 mEq/L (3.5-5.1); Protein, Total 6.6 g/dL (6.4-8.2); Sodium Level 138 mEq/L (136-145)
--- NOTE | 2024-06-03 19:37 | EDPHYS ---
Physician Documentation [facility] Name: Desi Gómez Age: 78 yrs Sex: Female : 1945 Arrival Date: 06/03/2024 Time: 16:10 Bed 8 Private MD: ED Physician Bhupinder Blake HPI: 06/03 16:21 This 78 yrs old Female presents to ER via Unassigned with complaints of coffee ground ms3 emesis. 16:21 78-year-old female with past medical history of cognitive communication deficit ms3 anxiety, hypokalemia, anxiety disorder, chronic viral hepatitis C, constipation, epilepsy, heart disease, hyperlipidemia, TIA, CVA, schizophrenia, dementia, contracture of left hand, contracture of left elbow, dysphagia, hypertension presents to the emergency department via [facility] for 2 episodes of coffee-ground emesis. EMS notes patient had 1 episode this morning and another episode at 3 PM. Patient endorses nausea and headache at this time. Patient denies any alleviating or inciting factors. Patient states she is having abdominal pain that she rates a 6/10.. Historical: - Allergies: 16:38 PENICILLINS; jb4 - PMHx: 17:05 Depressive disorder; Heart disease; hyperlipidemia; Cognitive communication deficit; jb4 CVA; dysphagia; Dementia; Anxiety; Schizophrenia; - Immunization history:: Adult Immunizations up to date. - Infectious Disease History:: Denies. - Social history:: Smoking status: Patient denies any tobacco usage or history of. ROS: 16:21 Constitutional: Negative for fever, and chills. Cardiovascular: Negative for chest ms3 pain, and palpitations. Respiratory: Negative for shortness of breath, cough, wheezing, and pleuritic chest pain, 16:21 Abdomen/GI: Positive for abdominal pain, nausea, Coffee-ground emesis, Exam: 16:21 Constitutional: This is a well developed, well nourished patient who is awake, alert, ms3 and in no acute distress. Cardiovascular: Regular rate and rhythm with a normal S1 and S2. No gallops, murmurs, or rubs. Normal PMI, no JVD. No pulse deficits. Respiratory: Lungs have equal breath sounds bilaterally, clear to auscultation and percussion. No rales, rhonchi or wheezes noted. No increased work of breathing, no retractions or nasal flaring. Skin: Warm, dry with normal turgor. Normal color with no rashes, no lesions, and no evidence of cellulitis. 16:21 Abdomen/GI: Inspection: abdomen appears normal, Bowel sounds: normal, Palpation: mild abdominal tenderness, in the epigastric area, Vital Signs: 16:22 BP 133 / 75; Pulse 101; Resp 16; Temp 97.3(O); Pulse Ox 94% on R/A; Weight 64.86 kg; jb4 Height 5 ft. 10 in. ; 18:30 BP 131 / 63; Pulse 93; Pulse Ox 93% ; rs6 19:30 BP 129 / 48; Pulse 91; Resp 16; Pulse Ox 94% on R/A; jb4 20:30 BP 111 / 59; Pulse 87; Resp 16; Pulse Ox 96% on R/A; jb4 21:32 BP 129 / 63; Pulse 89; Resp 16; Pulse Ox 96% on R/A; jb4 16:22 Body Mass Index 20.52 (64.86 kg, 177.8 cm) jb4 MDM: 16:20 Medical Screening Exam initiated ms3 16:21 Differential diagnosis: bowel obstruction, gastritis, non-specific abd pain, Peptic ms3 Ulcer Disease. 17:59 Transition of care: After a detail discussion of the patient's case, care is ms3 transferred to Bhupinder Blake MD. 17:59 ED course: Patient signed out to Dr Blake. Patient pending labs and CT abdomen and ms3 pelvis.. 19:35 Data reviewed: vital signs, nurses notes, lab test result(s), radiologic studies, CT rn scan, and as a result, I will admit patient. Consideration of Admission/Observation Patient was admitted/placed on observation. Escalation of care including admission/observation considered. Counseling: I had a detailed discussion with the patient and/or guardian regarding the historical points, exam findings, and any diagnostic results supporting the discharge/admit diagnosis, lab results, radiology results, the need for further work-up and treatment in the hospital, the need to transfer to another facility, [facility] does not immediately have the required specialist. ED course: Signed out to me by Dr. Mcallister, pending transfer for hematemesis, coffee-ground emesis. Nausea has improved, continues on Protonix drip, hemoglobin normal, CT abdomen pelvis no acute findings per Dr. Farah. Organizing transfer for GI evaluation at this time.. 20:19 ED course: Doc to doc performed, accepted for transfer. . rn 06/03 16:21 Order name: CBC with Diff; Complete Time: 17:19 ms3 06/03 16:21 Order name: CMP; Complete Time: 18:59 ms3 06/03 16:21 Order name: Lipase; Complete Time: 18:59 ms3 06/03 16:21 Order name: Type And Screen; Complete Time: 18:59 ms3 06/03 18:53 Order name: ABO/RH no charge; Complete Time: 18:59 EDMS 06/03 16:21 Order name: CT Abd/Pelvis - IV Contrast Only; Complete Time: 19:43 ms3 06/03 16:21 Order name: IV Saline Lock; Complete Time: 17:02 ms3 06/03 16:21 Order name: Labs collected and sent; Complete Time: 17:02 ms3 06/03 17:13 Order name: Labs - recollect needed: recollect green top and type and screen, reband bd pt; Complete Time: 18:10 Administered Medications: 18:06 Drug: Pantoprazole IV 8 mg/hr IV at 25 ml/hr continuous; (Standard dilution is 80 mg in jb4 250 mL NS) {Note: right breast.} Route: IV; Rate: 25 ml/hr; Site: Other; 22:08 Follow up: IV Status: Infusion continued upon transfer jb4 18:06 Drug: Pantoprazole IVP 80 mg IVP once {Note: right breast.} Route: IVP; Site: Other; 4 22:09 Follow up: Response: No adverse reaction jb4 20:48 Drug: Ondansetron IVP 4 mg IVP once; over 2 minutes {Note: right breast.} Route: IVP; 4 Site: Other; 22:09 Follow up: Response: No adverse reaction; Marked relief of symptoms jb4 Disposition Summary: 06/03/24 19:37 Transfer Ordered Notes: Transfer Location: [facility] rn Reason: Higher level of care rn Condition: Stable rn Problem: new rn Symptoms: have improved rn Accepting Physician: (06/03/24 22:09) jb4 Diagnosis - Hematemesis rn Forms: - Medication Reconciliation Form rn - SBAR form rn Signatures: Dispatcher [employer] Tia Castellanos Roman, MD MD rn Bryson, James, RN RN jb4 Alex Mcallister DO DO ms3 Corrections: (The following items were deleted from the chart) : 19:37 Dr. tobias jb4
--- NOTE | 2024-06-03 19:37 | ER ---
Nurse's Notes [facility] Name: Desi Gómez Age: 78 yrs Sex: Female : 1945 Arrival Date: 06/03/2024 Time: 16:10 Bed 8 Private MD: Diagnosis: Hematemesis Presentation: 06/03 16:22 Chief complaint: Patient states: The staff at [facility] called reporting pt jb4 was having coffee ground emesis. Pt had 2 episodes. We noticed that bag at the bedside did have coffee ground. Pt denies nausea at this time. Coronavirus screen: At this time, the client does not indicate any symptoms associated with coronavirus-19. Ebola Screen: No symptoms or risks identified at this time. Initial Sepsis Screen: Does the patient meet any 2 criteria? HR > 90 bpm. Yes Does the patient have a suspected source of infection? No. Patient's initial sepsis screen is negative. Risk Assessment: Do you want to hurt yourself or someone else? Patient reports no desire to harm self or others. Onset of symptoms was June 03, 2024. Transition of care: patient was not received from another setting of care. 16:22 Method Of Arrival: EMS: [facility] jb4 16:22 Acuity: MACRINA 3 jb4 Historical: - Allergies: 16:38 PENICILLINS; jb4 - PMHx: 17:05 Depressive disorder; Heart disease; hyperlipidemia; Cognitive communication deficit; jb4 CVA; dysphagia; Dementia; Anxiety; Schizophrenia; - Immunization history:: Adult Immunizations up to date. - Infectious Disease History:: Denies. - Social history:: Smoking status: Patient denies any tobacco usage or history of. Screenin:31 [facility] ED Fall Risk Assessment (Adult) History of falling in the last 3 months, jb4 including since admission No falls in past 3 months (0 pts) Confusion or Disorientation No (0 pts) Intoxicated or Sedated No (0 pts) Impaired Gait No (0 pts) Mobility Assist Device Used No (0 pt) Altered Elimination No (0 pt) Score/Fall Risk Level 0 - 2 = Low Risk Oriented to surroundings, Maintained a safe environment. Abuse screen: Denies threats or abuse. Nutritional screening: No deficits noted. Tuberculosis screening: No symptoms or risk factors identified. Assessment: 16:45 General: Appears in no apparent distress. comfortable, Behavior is calm, cooperative, jb4 appropriate for age. Pain: Denies pain. Neuro: Level of Consciousness is awake, alert, obeys commands, Oriented to person, place, time, situation. Cardiovascular: Patient's skin is warm and dry. Respiratory: Airway is patent Respiratory effort is even, unlabored, Respiratory pattern is regular, symmetrical. GI: Reports nausea, vomiting. Derm: Skin is intact, Skin is pink, warm \T\ dry. Musculoskeletal: Circulation, motion, and sensation intact. Range of motion: intact in all extremities. 18:00 Reassessment: Patient appears in no apparent distress at this time. Patient and/or jb4 family updated on plan of care and expected duration. Pain level reassessed. Patient is alert, oriented x 3, equal unlabored respirations, skin warm/dry/pink. 19:00 Reassessment: Patient appears in no apparent distress at this time. Patient and/or jb4 family updated on plan of care and expected duration. Pain level reassessed. Patient is alert, oriented x 3, equal unlabored respirations, skin warm/dry/pink. 20:00 Reassessment: Patient appears in no apparent distress at this time. Patient and/or jb4 family updated on plan of care and expected duration. Pain level reassessed. Patient is alert, oriented x 3, equal unlabored respirations, skin warm/dry/pink. 20:58 Reassessment: Patient appears in no apparent distress at this time. Patient and/or jb4 family updated on plan of care and expected duration. Pain level reassessed. Patient is alert, oriented x 3, equal unlabored respirations, skin warm/dry/pink. 21:32 Reassessment: Patient appears in no apparent distress at this time. Patient and/or jb4 family updated on plan of care and expected duration. Pain level reassessed. Patient is alert, oriented x 3, equal unlabored respirations, skin warm/dry/pink. changed pt's brief. Vital Signs: 16:22 BP 133 / 75; Pulse 101; Resp 16; Temp 97.3(O); Pulse Ox 94% on R/A; Weight 64.86 kg; jb4 Height 5 ft. 10 in. ; 18:30 BP 131 / 63; Pulse 93; Pulse Ox 93% ; rs6 19:30 BP 129 / 48; Pulse 91; Resp 16; Pulse Ox 94% on R/A; jb4 20:30 BP 111 / 59; Pulse 87; Resp 16; Pulse Ox 96% on R/A; jb4 21:32 BP 129 / 63; Pulse 89; Resp 16; Pulse Ox 96% on R/A; jb4 16:22 Body Mass Index 20.52 (64.86 kg, 177.8 cm) jb4 ED Course: 16:20 Patient arrived in ED. ss 16:20 Alex Mcallister DO is Attending Physician. ms3 16:27 Triage completed. jb4 16:38 Arm band placed on right wrist. jb4 16:55 Missed attempt(s): 22 gauge in right upper arm. Bleeding controlled, band aid applied, aa5 catheter tip intact. 16:58 Missed attempt(s): 22 gauge in right forearm. Bleeding controlled, band aid applied, aa5 catheter tip intact. 16:58 Initial lab(s) drawn, by mi, sent to lab. aa5 17:59 Attending Physician role handed off by Alex Mcallister DO rn 17:59 Bhupinder Blake MD is Attending Physician. rn 18:00 Inserted saline lock: 20 gauge in right ,using aseptic technique. Breast Flushed with cm10 10 mL NS. 18:42 Robbin Joe, RN is Primary Nurse. jb4 19:21 CT Abd/Pelvis - IV Contrast Only In Process Unspecified. EDMS 20:18 initiated transfer with [facility]. kmf 21:00 pt was accepted by Dr. Kebede M \T\ 2017. Admin approval given by Sadaf Hodges \Lisseth\ 2052. Pt km f will go to [facility] [place] [id number]. Number for nurse to nurse report [phone]. [facility] to transfer pt once nurse to nurse is complete. 21:31 Patient has correct armband on for positive identification. Bed in low position. Call jb4 light in reach. Side rails up X 1. Provided Education on: plan of care. 22:09 No provider procedures requiring assistance completed. Patient transferred, IV remains jb4 in place. Administered Medications: 18:06 Drug: Pantoprazole IV 8 mg/hr IV at 25 ml/hr continuous; (Standard dilution is 80 mg in jb4 250 mL NS) {Note: right breast.} Route: IV; Rate: 25 ml/hr; Site: Other; 22:08 Follow up: IV Status: Infusion continued upon transfer jb4 18:06 Drug: Pantoprazole IVP 80 mg IVP once {Note: right breast.} Route: IVP; Site: Other; jb4 22:09 Follow up: Response: No adverse reaction jb4 20:48 Drug: Ondansetron IVP 4 mg IVP once; over 2 minutes {Note: right breast.} Route: IVP; jb4 Site: Other; 22:09 Follow up: Response: No adverse reaction; Marked relief of symptoms jb4 Output: 21:31 Urine: 1ml (Voided); Stool: 1 (Loose Stool) ; Total: 1ml. jb4 Outcome: 19:37 ER care complete, transfer ordered by . rn 22:08 Transferred by ground EMS to [facility], Transfer form completed. jb4 X-rays sent w/ patient. 22:08 Condition: stable 22:08 Discharge instructions given to patient, Instructed on the need for transfer, Demonstrated understanding of instructions, 22:09 Patient left the ED. jb4 Signatures: Dispatcher [employer] EDMS Bhupinder Blake MD MD rn Calderon, Audri RN RN aa5 Mary Khan RN RN Robbin Mariano RN RN jb4 Alex Mcallister DO DO ms3 Kristin Gómez RN RN cm10 Kalee Santos Ryan rs6
--- NOTE | 2024-06-03 19:40 | RAD REPORT ---
EXAMINATION: CT ABDOMEN AND PELVIS WITH CONTRAST CLINICAL INDICATION: Female, 78 years old.ABD PAIN TECHNIQUE: CT abdomen and pelvis was performed, after the administration of IV contrast[facility] Axial, sagittal and coronal reconstructions were obtained. One or more of the following dose reduction techniques were used: Automated exposure control, adjustment of the mA and/o r kV according to patient size, and/or iterative reconstruction. Unless otherwise specified, incidental findings do not require dedicated imaging follow-up. [id number]. COMPARISON: 02/20/2024 FINDINGS: LOWER CHEST: No acute process identified.No significant pericardial effusion. Mild coronary artery ca lcifications. UPPER GI: No significant abnormality. LIVER: Hepatic steatosis, but otherwise unremarkable. GALLBLADDER/BILE DUCTS: Cholecystectomy. Moderate extrahepatic biliary ductal dilatation. This is sim ilar to prior and was previously evaluated with MRCP. PANCREAS: Atrophy but no acute findings. SPLEEN: High attenuation splenic lesions are similar to 02/20/2024. ADRENALS: No adrenal masses. KIDNEYS AND URETERS: No hydronephrosis.Low density and/or too small to characterize renal lesions whi ch are statistically benign.No renal calculi. ABDOMINAL AORTA AND OTHER VESSELS: Moderate atherosclerotic changes without aortic aneurysm. PERITONEUM: No abnormal free fluid. No free air. LYMPH NODES: No pathologic lymphadenopathy. ABDOMINAL WALL: Unremarkable SMALL BOWEL/COLON: Small bowel has normal course and caliber. No colonic wall thickening or pericolon ic inflammatory changes.Large rectal stool burden Moderate formed stool burden. URINARY BLADDER: Bladder wall irregularity may be secondary to chronic bladder outlet obstruction. REPRODUCTIVE ORGANS: Possible endometrial fluid versus thickening. This was previously evaluated with pelvic ultrasound. MUSCULOSKELETAL: Multilevel degenerative changes in the spine. No acute fracture. Right hip ORIF. ADDITIONAL FINDINGS: None. IMPRESSION: No acute findings within the abdomen or pelvis. No specific CT findings to explain hematemesis. Large rectal stool burden.
[2024-06-03] MEDS ORDERED: ONDANSETRON 4 MG/2 ML VIAL ONE (20:43)
[2024-06-03 22:39] VITALS: TEMP 97.3
[2024-06-03 22:46] VITALS: O2SAT 96
[2024-06-03 22:48] VITALS: BP 129/63
== END 2024-06-03 22:09 | disposition short-term general hospital (02) ==
LOC: ER 16:10
DX: K92.0 Hematemesis (principal); R10.13 Epigastric pain; R51.9 Headache, unspecified
CPT/HCPCS: 96365; 85025; 36415; 86900; 86850; 86901; 83690; 80053; 74177; 96375; 99285; 96366; Q9967; J2470 ×2; J2405; J7050

== ENCOUNTER 2024-11-06 02:46 | Inpatient (IN) | payer OTHER ==
[2024-11-06 03:39] LABS: Absolute Lymphocytes (CBC) 1.8 K/uL (0.7-4.9); Hematocrit 33.9 % (36.0-45.0); Hemoglobin 12.2 g/dL (12.0-15.0); MCH 32.1 pg (27.0-35.0); MCHC 35.9 g/dL (32.0-36.0); MCV 89.3 fL (80-100); MPV 7.1 fL (7.6-11.3); Nucleated RBC Absolute Count 0.0 (0-0); Nucleated Red Blood Cells % 0.2 % (0-0); RBC Red Blood Cell Count 3.80 M/uL (3.86-4.86); White Blood Count 7.10 thou/uL (4.3-10.9)
[2024-11-06 04:04] LABS: Anion Gap 7.4 mEq/L (5.0-15.0); BUN Blood Urea Nitrogen 7.0 mg/dL (7-18); Glucose Level 95.0 mg/dL (74-106); Magnesium 1.7 mg/dL (1.6-2.4)
[2024-11-06 04:05] LABS: Potassium 2.4 mEq/L (3.5-5.1)
[2024-11-06 04:25] LABS: Sqamous Epithelial <5 /HPF (None Seen); Urine Culture Reflex Order NOT NEEDED; Urine Microscopic Reflex YN ORDER UMIC
[2024-11-06] MEDS ORDERED: NA CHLORIDE 0.9% 1,000 ML ONE (04:32)
[2024-11-06] MEDS ORDERED: KCL 20 MEQ/100 mL IVPB 100 ML IV ONE (04:32)
[2024-11-06] MEDS ORDERED: POTASSIUM 25 MEQ EFFERV TAB ONE (04:32)
[2024-11-06] MEDS ORDERED: CIPROFLOXACIN HCL 500 MG TAB ONE (04:32)
[2024-11-06] MEDS ORDERED: Levofloxacin500mg IV 500 MG/100 ML BAG IV ONE (05:42)
--- NOTE | 2024-11-06 05:42 | ER ---
Nurse's Notes [facility] Name: Desi Gómez Age: 79 yrs Sex: Female : 1945 Arrival Date: 11/06/2024 Time: 02:46 Bed 6 Private MD: Diagnosis: Pneumonia, unspecified organism;Hypokalemia Presentation: 11/06 02:51 Chief complaint: Patient states: I have a mild headache but otherwise i feel fine. EMS bm8 states: For some reason [facility] did a stat K+ level and it came back extremely low. Coronavirus screen: At this time, the client does not indicate any symptoms associated with coronavirus-19. Ebola Screen: Patient negative for fever greater than or equal to 101.5 degrees Fahrenheit, and additional compatible Ebola Virus Disease symptoms Patient denies exposure to infectious person. Patient denies travel to an Ebola-affected area in the 21 days before illness onset. No symptoms or risks identified at this time. Initial Sepsis Screen: Does the patient meet any 2 criteria? No. Patient's initial sepsis screen is negative. Does the patient have a suspected source of infection? No. Patient's initial sepsis screen is negative. Risk Assessment: Do you want to hurt yourself or someone else? Patient reports no desire to harm self or others. Onset of symptoms was November 06, 2024 at 02:52. 02:51 Method Of Arrival: EMS: [facility] bm8 02:51 Acuity: MACRINA 2 bm8 Triage Assessment: 02:53 General: Appears in no apparent distress. comfortable, Behavior is calm, cooperative, bm8 appropriate for age. Pain: Complains of pain in head Pain currently is 5 out of 10 on a pain scale. EENT: No deficits noted. No signs and/or symptoms were reported regarding the EENT system. Neuro: No deficits noted. Level of Consciousness is awake, alert, obeys commands, Oriented to person, place, situation, Appropriate for age. Cardiovascular: Denies chest pain, Capillary refill < 3 seconds in bilateral fingers Patient's skin is warm and dry. Respiratory: Airway is patent Respiratory effort is even, unlabored, Respiratory pattern is regular, symmetrical. GI: No signs and/or symptoms were reported involving the gastrointestinal system. : No signs and/or symptoms were reported regarding the genitourinary system. Derm: No signs and/or symptoms reported regarding the dermatologic system. Musculoskeletal: No signs and/or symptoms reported regarding the musculoskeletal system. 02:53 Musculoskeletal: pt is contracted on left arm, bilateral foot drop, and generalized bm8 weakness. Historical: - Allergies: 02:53 PENICILLINS; bm8 - PMHx: 02:53 Anxiety; cognitive communication deficit; CVA; Dementia; depressive disorder; bm8 DYSPHAGIA; heart disease; Hyperlipidemia; Schizophrenia; - Immunization history:: Adult Immunizations up to date. - Infectious Disease History:: HEP C. - Social history:: Smoking status: Patient denies any tobacco usage or history of. - Family history:: not pertinent. - Hospitalizations: : No recent hospitalization is reported. Screenin:56 [facility] ED Fall Risk Assessment (Adult) History of falling in the last 3 months, bm8 including since admission Yes- fall prone (multiple falls) (3 pts) Confusion or Disorientation No (0 pts) Intoxicated or Sedated No (0 pts) Impaired Gait Yes (1 pt) Mobility Assist Device Used Yes (1 pt) Altered Elimination Yes (1 pt) Score/Fall Risk Level 3 or more points = High Risk Oriented to surroundings, Maintained a safe environment, Educated pt \T\ family on fall prevention, incl call for assistance when getting out of bed, Assessed \T\ reinforced patient's understanding of fall precautions, Hourly rounding (assess needs \T\ fall precautionary measures) done, Used ambulatory aids as needed (educated on \T\ assisted with), Used gait belt as appropriate. Abuse screen: Denies threats or abuse. Nutritional screening: No deficits noted. Tuberculosis screening: No symptoms or risk factors identified. Assessment: 03:24 Reassessment: see triage assessment. bm8 04:01 Reassessment: Patient appears in no apparent distress at this time. No changes from bm8 previously documented assessment. Patient and/or family updated on plan of care and expected duration. Pain level reassessed. Patient is alert, oriented x 3, equal unlabored respirations, skin warm/dry/pink. 04:51 Reassessment: Patient appears in no apparent distress at this time. Patient and/or bm8 family updated on plan of care and expected duration. Pain level reassessed. Patient is alert, oriented x 3, equal unlabored respirations, skin warm/dry/pink. pt placed on purwic. Patient states feeling better. 05:50 Reassessment: Patient appears in no apparent distress at this time. Patient and/or bm8 family updated on plan of care and expected duration. Pain level reassessed. Patient is alert, oriented x 3, equal unlabored respirations, skin warm/dry/pink. pt is resting with eyes closed breathing is even unlabored with symmetrical rise and fall of chest .pt is showing no signs of distress at this time. Infusion continuing without difficulty. 06:39 Reassessment: Patient appears in no apparent distress at this time. No changes from bm8 previously documented assessment. Patient and/or family updated on plan of care and expected duration. Pain level reassessed. Patient is alert, oriented x 3, equal unlabored respirations, skin warm/dry/pink. 08:00 Reassessment: Patient appears in no apparent distress at this time. Patient and/or ph family updated on plan of care and expected duration. Pain level reassessed. Patient is alert, oriented x 3, equal unlabored respirations, skin warm/dry/pink. Vital Signs: 02:51 BP 155 / 55; Pulse 87; Resp 18; Temp 99.5; Pulse Ox 94% ; Weight 58.97 kg; Height 5 ft. bm8 1 in. ; Pain 5/10; 04:01 BP 146 / 66; Pulse 82; Resp 20; Temp 99.5; Pulse Ox 93% ; Pain 5/10; bm8 04:51 BP 164 / 64; Pulse 85; Resp 19; Temp 99.5; Pulse Ox 95% ; Pain 0/10; bm8 05:50 BP 142 / 65; Pulse 80; Resp 20; Temp 98.6; Pulse Ox 96% ; Pain 0/10; bm8 06:39 BP 154 / 73; Pulse 88; Resp 13; Temp 98.6; Pulse Ox 96% ; Pain 0/10; al5 07:30 BP 158 / 64; Pulse 84; Resp 18; Pulse Ox 97% on R/A; ph 08:30 BP 166 / 68; Pulse 82; Resp 16; Temp 98.4; Pulse Ox 97% on R/A; ph 02:51 Body Mass Index 24.56 (58.97 kg, 154.94 cm) bm8 02:51 Pain Scale: Adult bm8 04:01 Pain Scale: Adult bm8 04:51 Pain Scale: Adult bm8 05:50 Pain Scale: Adult bm8 06:39 Pain Scale: Adult al5 Sherron Coma Score: 02:56 Eye Response: spontaneous(4). Motor Response: obeys commands(6). Verbal Response: bm8 oriented(5). Total: 15. 04:01 Eye Response: spontaneous(4). Motor Response: obeys commands(6). Verbal Response: bm8 oriented(5). Total: 15. 04:51 Eye Response: spontaneous(4). Motor Response: obeys commands(6). Verbal Response: bm8 oriented(5). Total: 15. 06:39 Eye Response: spontaneous(4). Motor Response: obeys commands(6). Verbal Response: bm8 oriented(5). Total: 15. ED Course: 02:48 Patient arrived in ED. rn 02:48 Bhupinder Blake MD is Attending Physician. rn 02:50 Sunil Lemus RN is Primary Nurse. bm8 02:53 Triage completed. bm8 02:53 Arm band placed on right wrist. bm8 02:56 Patient has correct armband on for positive identification. Bed in low position. Call bm8 light in reach. Side rails up X 1. Client placed on continuous cardiac and pulse oximetry monitoring. NIBP monitoring applied. manager in home on. Pulse ox on. NIBP on. Door closed. Noise minimized. Pillow given. Verbal reassurance given. Head of bed elevated. 02:56 No provider procedures requiring assistance completed. Patient maintains SpO2 bm8 saturation greater than 95% on room air. 03:15 Initial lab(s) drawn, by me, sent to lab. EKG done, by ED staff, reviewed by Bhupinder Blake MD. Inserted saline lock: 20 gauge in right upper arm, using aseptic technique. ,using aseptic technique. ultrasound guided. 04:27 XRAY Chest (1 view) In Process Unspecified. EDMS 05:41 Magdalena Ramírez MD is Hospitalizing Provider. rn 06:39 Provided Education on: need for admission. bm8 06:39 Patient admitted, IV remains in place. bm8 07:08 Report given to Latanya RN. bm8 Administered Medications: 04:47 Not Given (pt unable to swallow drinkk): potassiumeffervescent tablet 50 meq PO once; bm8 dissolve in 4 ounces of water or juice 04:47 Drug: Ciprofloxacin PO 500 mg PO once Route: PO; bm8 06:40 Follow up: Response: No adverse reaction bm8 04:48 Drug: Potassium Chloride IV 20 mEq IV at calculated rate once; administer over 1-2 bm8 hours Route: IV; Rate: calculated rate; Site: right upper arm; 06:40 Follow up: Response: No adverse reaction; IV Status: Completed infusion bm8 05:46 Drug: levofloxacin IVPB 500 mg 100 ml IVPB once over 60 mins Volume: 100 ml; Route: bm8 IVPB; Infused Over: 60 mins; Site: right upper arm; 06:39 Follow up: Response: No adverse reaction; IV Status: Completed infusion bm8 Medication: 02:56 VIS not applicable for this client. bm8 Outcome: 05:41 Decision to Hospitalize by Provider. rn 09:58 Patient left the ED. ph Signatures: Dispatcher [employer] EDMS Bhupinder Blake MD MD rn Hall, Patricia, RN RN ph McDonald, Brad, RN RN 8 [facility] [place] RN RN al5
--- NOTE | 2024-11-06 05:42 | EDPHYS ---
Physician Documentation [facility] Name: Desi Gómez Age: 79 yrs Sex: Female : 1945 Arrival Date: 11/06/2024 Time: 02:46 Bed 6 Private MD: ED Physician Bhupinder Blake HPI: 11/06 04:04 This 79 yrs old Female presents to ER via EMS with complaints of Abnormal Lab Results. rn 04:04 Patient brought in by EMS from care home for low potassium. They got a stat rn potassium level of 2.5. Patient otherwise reports mild headache and generalized malaise and generalized weakness. Denies any fever or chills. No shortness of breath. No abdominal pain. No chest pain.. Historical: - Allergies: 02:53 PENICILLINS; bm8 - PMHx: 02:53 Anxiety; cognitive communication deficit; CVA; Dementia; depressive disorder; bm8 DYSPHAGIA; heart disease; Hyperlipidemia; Schizophrenia; - Immunization history:: Adult Immunizations up to date. - Infectious Disease History:: HEP C. - Social history:: Smoking status: Patient denies any tobacco usage or history of. - Family history:: not pertinent. - Hospitalizations: : No recent hospitalization is reported. ROS: 04:04 Constitutional: Negative for fever, chills, and weight loss, Cardiovascular: Negative rn for chest pain, palpitations, and edema, Respiratory: Negative for shortness of breath, cough, wheezing, and pleuritic chest pain, Abdomen/GI: Negative for abdominal pain, nausea, vomiting, diarrhea, and constipation, MS/Extremity: Negative for injury and deformity, Skin: Negative for injury, rash, and discoloration, Neuro: Positive for headache and generalized weakness Exam: 04:04 Constitutional: This is a well developed, well nourished patient who is awake, alert, rn and in no acute distress. Cardiovascular: Regular rate and rhythm with a normal S1 and S2. No gallops, murmurs, or rubs. Normal PMI, no JVD. No pulse deficits. Respiratory: Mild tachypnea Abdomen/GI: Soft, nontender MS/ Extremity: Pulses equal, no cyanosis. Neuro: Awake and alert, GCS 15 05:37 ECG was reviewed by the Attending Physician. rn Vital Signs: 02:51 BP 155 / 55; Pulse 87; Resp 18; Temp 99.5; Pulse Ox 94% ; Weight 58.97 kg; Height 5 ft. bm8 1 in. ; Pain 5/10; 04:01 BP 146 / 66; Pulse 82; Resp 20; Temp 99.5; Pulse Ox 93% ; Pain 5/10; bm8 04:51 BP 164 / 64; Pulse 85; Resp 19; Temp 99.5; Pulse Ox 95% ; Pain 0/10; bm8 05:50 BP 142 / 65; Pulse 80; Resp 20; Temp 98.6; Pulse Ox 96% ; Pain 0/10; bm8 06:39 BP 154 / 73; Pulse 88; Resp 13; Temp 98.6; Pulse Ox 96% ; Pain 0/10; al5 07:30 BP 158 / 64; Pulse 84; Resp 18; Pulse Ox 97% on R/A; ph 08:30 BP 166 / 68; Pulse 82; Resp 16; Temp 98.4; Pulse Ox 97% on R/A; ph 02:51 Body Mass Index 24.56 (58.97 kg, 154.94 cm) bm8 02:51 Pain Scale: Adult bm8 04:01 Pain Scale: Adult bm8 04:51 Pain Scale: Adult bm8 05:50 Pain Scale: Adult bm8 06:39 Pain Scale: Adult al5 Sherron Coma Score: 02:56 Eye Response: spontaneous(4). Motor Response: obeys commands(6). Verbal Response: bm8 oriented(5). Total: 15. 04:01 Eye Response: spontaneous(4). Motor Response: obeys commands(6). Verbal Response: bm8 oriented(5). Total: 15. 04:51 Eye Response: spontaneous(4). Motor Response: obeys commands(6). Verbal Response: bm8 oriented(5). Total: 15. 06:39 Eye Response: spontaneous(4). Motor Response: obeys commands(6). Verbal Response: bm8 oriented(5). Total: 15. MDM: 02:48 Medical Screening Exam initiated rn 05:37 Differential Diagnosis Pneumonia, dehydration, hypokalemia, hypomagnesemia. Data rn reviewed: vital signs, nurses notes, lab test result(s), EKG, radiologic studies, plain films, and as a result, I will admit patient. 05:40 Consideration of Admission/Observation Patient was admitted/placed on observation. rn Escalation of care including admission/observation considered. Independent interpretation of the following test(s) in the Emergency Department X-Ray: My interpretation is Chest x-ray images show basilar infiltrate per my interpretation also has small pleural effusion.. Counseling: I had a detailed discussion with the patient and/or guardian regarding the historical points, exam findings, and any diagnostic results supporting the discharge/admit diagnosis, the presence of at least one elevated blood pressure reading (>120/80) during this emergency department visit, lab results, radiology results, the need for further work-up and treatment in the hospital. Response to treatment: the patient's symptoms have mildly improved after treatment, and as a result, I will admit patient. 11/06 02:56 Order name: CBC with Diff; Complete Time: 04:25 rn 11/06 02:56 Order name: Basic Metabolic Panel; Complete Time: 04:25 rn 11/06 02:56 Order name: Magnesium; Complete Time: 04:25 rn 11/06 02:56 Order name: UA Rfx Brandon Cult if indicated; Complete Time: 04:26 rn 11/06 05:27 Order name: BNP; Complete Time: 06:04 rn 11/06 05:27 Order name: Blood Culture Adult (2) rn 11/06 05:27 Order name: Lactate w/ 2H reflex if indic.; Complete Time: 06:17 rn 11/06 05:27 Order name: Protime (+inr); Complete Time: 06:04 rn 11/06 05:27 Order name: Ptt, Activated; Complete Time: 06:04 rn 11/06 05:27 Order name: Troponin HS; Complete Time: 06:04 rn 11/06 08:47 Order name: Basic Metabolic Panel EDMS 11/06 08:47 Order name: Basic Metabolic Panel EDMS 11/06 08:48 Order name: Basic Metabolic Panel EDMS 11/06 08:48 Order name: Basic Metabolic Panel EDMS 11/06 08:48 Order name: Basic Metabolic Panel EDMS 11/06 08:48 Order name: Basic Metabolic Panel EDMS 11/06 08:48 Order name: CBC with Automated Diff EDMS 11/06 08:48 Order name: CBC with Automated Diff EDMS 11/06 08:48 Order name: CBC with Automated Diff EDMS 11/06 08:48 Order name: CBC with Automated Diff EDMS 08/ 08:48 Order name: CBC with Automated Diff EDMS 08 08:48 Order name: CBC with Automated Diff EDMS 08/ 08:48 Order name: Magnesium EDMS 08/ 08:48 Order name: Magnesium EDMS 08/ 08:48 Order name: Magnesium EDMS 08/ 08:48 Order name: Magnesium EDMS 08 08:48 Order name: Magnesium EDMS 08 08:48 Order name: Magnesium EDMS 08 08:48 Order name: Phosphorus EDMS 08 08:48 Order name: Phosphorus EDMS 08 08:48 Order name: Phosphorus EDMS 08 08:48 Order name: Phosphorus EDMS 08 08:48 Order name: Phosphorus EDMS 08 08:48 Order name: Phosphorus EDMS 08 08:52 Order name: Sputum Culture EDMS 11/06 04:04 Order name: XRAY Chest (1 view); Complete Time: 06:04 rn 11/06 02:56 Order name: EKG; Complete Time: 02:56 rn 11/06 08:47 Order name: Physical Therapy Consult EDMS 11/06 02:56 Order name: EKG - Nurse/Tech; Complete Time: 03:14 rn 06 02:56 Order name: IV Start; Complete Time: 03:14 rn 06 05:27 Order name: Cardiac monitoring; Complete Time: 05:42 rn 06 05:27 Order name: IV Saline Lock - Large Bore; Complete Time: 05:42 rn 06 05:27 Order name: Labs collected and sent; Complete Time: 05:42 rn 11/06 05:27 Order name: O2 Per Protocol; Complete Time: 05:42 rn 11/06 05:27 Order name: O2 Sat Monitoring; Complete Time: 05:42 rn 08 05:27 Order name: Vital Signs; Complete Time: 05:42 rn EC:37 Rate is 86 beats/min. Rhythm is regular. QRS [place] is Normal. MT interval is normal. QRS rn interval is normal. QT interval is normal. No Q waves. T waves are Normal. No ST changes noted. Clinical impression: NSR w/ Non-specific ST/T Changes. Interpreted by me. Reviewed by me. Administered Medications: 04:47 Not Given (pt unable to swallow drinkk): potassiumeffervescent tablet 50 meq PO once; bm8 dissolve in 4 ounces of water or juice 04:47 Drug: Ciprofloxacin PO 500 mg PO once Route: PO; bm8 06:40 Follow up: Response: No adverse reaction bm8 04:48 Drug: Potassium Chloride IV 20 mEq IV at calculated rate once; administer over 1-2 bm8 hours Route: IV; Rate: calculated rate; Site: right upper arm; 06:40 Follow up: Response: No adverse reaction; IV Status: Completed infusion bm8 05:46 Drug: levofloxacin IVPB 500 mg 100 ml IVPB once over 60 mins Volume: 100 ml; Route: bm8 IVPB; Infused Over: 60 mins; Site: right upper arm; 06:39 Follow up: Response: No adverse reaction; IV Status: Completed infusion bm8 Disposition Summary: 11/06/24 05:41 Hospitalization Ordered Notes: Hospitalization Status: Inpatient Admission rn Provider: Magdalena Ramírez rn Location: Telemetry/[facility] (Inpatient) rn Condition: Stable rn Problem: new rn Symptoms: have improved rn Bed/Room Type: Standard rn Room Assignment: 220(11/06/24 09:09) bd Diagnosis - Pneumonia, unspecified organism rn - Hypokalemia rn Forms: - Medication Reconciliation Form rn - SBAR form rn - 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 Total time: 35 rn minutes Signatures: Dispatcher [employer] EDMS Tia Martines Roman, MD MD rn McDonald, Brad, RN RN bm8 Corrections: (The following items were deleted from the chart) 05:34 05:27 Accucheck ordered. rn bm8 09:09 05:41 rn bd
[2024-11-06 05:44] LABS: PT Prothrombin Time 15.0 SECONDS (10-13.0); PTT, Activated Partial Thromb 31.4 SECONDS (27.2-37.4); Protime INR 1.34
[2024-11-06 05:55] LABS: NT PRO-BNP 292.0 pg/mL (<450); Troponin High Sensitivity 7.8 pg/mL (<58.9)
--- NOTE | 2024-11-06 06:03 | RAD REPORT ---
INDICATION: COUGH COMPARISON: No existing relevant imaging studies are available FINDINGS: Single frontal view of the chest was obtained. SUPPORT DEVICES: None HEART/MEDIASTINUM: Heart is upper limits of normal in size. LUNGS/PLEURA: Hazy opacities within the lower lobes. Possible small left pleural effusion. No pneumot horax. OTHER: No other significant findings. IMPRESSION: Hazy atelectasis versus airspace disease within the lower lobes with possible small left pleural effu bryan. Electronically signed by: Isai Vega DO 11/06/2024 04:46 AM CDT RP NR Due to temporary technical issues with the PACS/iPerceptions reporting system, reports are being desire d by the in-house radiologist without review as a courtesy to ensure prompt reporting the interpreting radiologist is fully responsible for the content of the report. Transcribed Date/Time: 11/06/2024 6:03 AM
--- NOTE | 2024-11-06 07:37 | P.HP ---
Certification for Inpatient Patient admitted to: Inpatient With expected LOS: >2 Midnights Practitioner: I am a practitioner with admitting privileges, knowledge of patient current condition, hospital course, and medical plan of care. Services: Services provided to patient in accordance with Admission requirements found in Title 42 Section 412.3 of the Code of Federal Regulations Patient History Date of Service: 11/06/24 Reason for admission: Bilateral pneumonia History of Present Illness: Desi Gómez is an 79-year-old female with past medical history of anxiety, cognitive communication deficit,CVA, dementia, depressive disorder, dysphagia, heart disease, hyperlipidemia, schizophrenia, hepatitis C who [facility] with abnormal lab value of potassium 2.5. Desi complains of mild headache and generalized malaise with weakness. On evaluation in the ED potassium 2.4 Chest x-ray reports "Hazy atelectasis versus airspace disease within the lower lobes with possible small left pleural effusion" Desi will be admitted to hospitalist service for further evaluation and treatment of bilateral lower lobe pneumonia. Allergies Unable to Assess Allergy (Unverified 02/21/24 00:52) Home Medications: Acetaminophen [Tylenol Extra Strength] 1,000 mg PO Q8HP PRN 02/21/24 Ascorbic Acid [Vitamin C] 500 mg PO BID 02/21/24 Aspirin Chewable [Aspirin Chewable*] 81 mg PO DAILY 02/21/24 Atorvastatin Calcium [Lipitor] 20 mg PO BEDTIME 02/21/24 Buspirone HCl 15 mg PO BID 02/21/24 Buspirone HCl [Buspar] 5 mg PO BID 02/21/24 Calcium Carbonate [Tums Regular] 500 mg PO AC 02/21/24 Carboxymethylcellulose Sodium [Artificial Tears] 2 drops EACH EYE DAILY 02/21/24 Clopidogrel Bisulfate [Plavix] 75 mg PO DAILY 02/21/24 Divalproex Sodium 250 mg PO TID 02/21/24 Divalproex Sodium [Depakote] 125 mg PO TID 02/21/24 Isosorbide Dinitrate 30 mg PO DAILY 02/21/24 Lactulose [Cephulac] 20 gm PO DAILY 02/21/24 Lidocaine 4% Patch [Lidoderm 5% Patch] 1 patch TD DAILY 02/21/24 Lidocaine 4% Patch [Lidoderm 5% Patch] 1 patch TD Q12HP PRN 02/21/24 Multivitamin with Minerals [One Daily Plus Minerals] 1 each PO DAILY 02/21/24 Ondansetron HCl 4 mg PO Q8HP PRN 02/21/24 PHENYTOIN ER Cap [Dilantin ER Cap] 100 mg PO BID 02/21/24 Potassium Chloride 20 meq PO BID 02/21/24 Promethazine Tab [Phenergan] 25 mg PO Q6HP PRN 02/21/24 Sertraline [Zoloft] 200 mg PO DAILY 02/21/24 Spironolactone [Aldactone] 25 mg PO DAILY 02/21/24 levETIRAcetam [Keppra Tab] 500 mg PO BID 02/21/24 traMADol HCL [Ultram] 50 mg PO Q12HP PRN 02/21/24 - Past Medical/Surgical History Diabetic: No -: Hypertension, hyperlipidemia, history of CVA -: Cholecystectomy - Family History Family History: Reviewed- Non-Contributory - Social History Smoking Status: Never smoker Alcohol use: No CD- Drugs: No Caffeine use: No Review of Systems Other: per HPI Physical Examination - Studies Laboratory Data (last 24 hrs) 11/06/24 11/06/24 11/06/24 03:15 03:15 03:15 WBC 7.10 Hgb 12.2 Hct 33.9 L Plt Count 419 H PT 15.0 H INR 1.34 APTT 31.4 Sodium 144 Potassium 2.4 L* BUN 7 Creatinine 0.29 L Glucose 95 Magnesium 1.7 Assessment and Plan - Plan Assessment and plan Dyspnea secondary to bilateral pneumonia Nausea -Ciprofloxacin - Currently on room air - Monitor WBC and fever - Zofran - Follow blood and sputum culture Hypokalemia - Replace - Potassium trend 2.4/3.0 Anxiety Cognitive communication deficit CVA Dementia Depressive disorder Dysphagia Heart disease Hyperlipidemia Schizophrenia Hepatitis C - Supportive care - Continue home medications as appropriate DVT PPx Lovenox Full code LOS 2 to 3 days Discharge Plan: Home Plan to discharge in: 48 Hours - Advance Directives Does patient have a Living Will: Yes Does patient have a Durable POA for Healthcare: No Time Spent Managing Pts Care (In Minutes): 55
[2024-11-06] MEDS: NA CHLORIDE 0.9% 1,000 ML IV SCH (10:59)
[2024-11-06] MEDS: ENOXAPARIN 40 MG/0.4 ML SQ SCH (10:59)
[2024-11-06] MEDS: POTASSIUM 25 MEQ EFFERV TAB PO ONE ×2 (14:40→20:32)
[2024-11-06] MEDS: CIPROFLOXACIN 400mg IV 400 MG/200 ML BAG IV SCH (20:32)
[2024-11-06] MEDS: AMLODIPINE 10 MG TAB PO ONE (21:34)
[2024-11-07 04:15] LABS: Absolute Lymphocytes (CBC) 1.2 K/uL (0.7-4.9); Hematocrit 33.6 % (36.0-45.0); Hemoglobin 11.8 g/dL (12.0-15.0); MCH 31.9 pg (27.0-35.0); MCHC 35.3 g/dL (32.0-36.0); MCV 90.4 fL (80-100); MPV 7.1 fL (7.6-11.3); Nucleated RBC Absolute Count 0.0 (0-0); Nucleated Red Blood Cells % 0.1 % (0-0); RBC Red Blood Cell Count 3.71 M/uL (3.86-4.86); White Blood Count 7.50 thou/uL (4.3-10.9)
[2024-11-07 07:05] LABS: Anion Gap 10.0 mEq/L (5.0-15.0); BUN Blood Urea Nitrogen 5 mg/dL (7-18); Glucose Level 105 mg/dL (74-106); Magnesium 1.5 mg/dL (1.6-2.4); Potassium 3.0 mEq/L (3.5-5.1)
[2024-11-07] MEDS: Magnesium Sulfate 2gm IVPB 2 G/50 ML BAG IV ONE (08:52)
[2024-11-07] MEDS: AMLODIPINE 10 MG TAB PO SCH (10:17)
[2024-11-07] MEDS: DIVALPROEX DR 250 MG TAB PO SCH (10:18)
[2024-11-07] MEDS: PANTOPRAZOLE 40MG TABLET PO SCH (10:18)
[2024-11-07] MEDS: BUSPIRONE HCL 15 MG TABLET PO SCH (10:19)
[2024-11-07] MEDS: ACETAMINOPHEN 325 MG TABLET PO PRN (10:21)
[2024-11-07] MEDS: POTASSIUM PHOS IN 0.9 % NACL 15 MMOL/250 ML BAG IV SCH (11:50)
--- NOTE | 2024-11-07 12:06 | ECHO ---
HEIGHT: 5 ft 1 in WEIGHT: 123 lb 0 oz DATE OF STUDY: 11/07/[address]: Aarti Ruiz NP 2-DIMENSIONAL: YES M.MODE: YES DOPPLER: YES COLOR FLOW: YES TDS: PORTABLE: YES DEFINITY: BUBBLE STUDY: DIAGNOSIS: CHEST PAIN CARDIAC HISTORY: CATHERIZATION: NO SURGERY: NO PROSTHETIC VALVE: NO PACEMAKER: NO MEASUREMENTS (cm) DIASTOLIC (NORMALS) SYSTOLIC (NORMALS) IVSd 0.9 (0.6-1.2) LA Diam 2.7 (1.9-4.0) LVEF 60-65% LVIDd 4.0 (3.5-5.7) LVIDs 2.3 (2.0-3.5) %FS 42% LVPWd 1.0 (0.6-1.2) Ao Diam 2.6 (2.0-3.7) 2 DIMENSIONAL ASSESSMENT: RIGHT ATRIUM: NORMAL LEFT ATRIUM: NORMAL RIGHT VENTRICLE: NORMAL LEFT VENTRICLE: NORMAL TRICUSPID VALVE: NORMAL MITRAL VALVE: NORMAL PULMONIC VALVE: NORMAL AORTIC VALVE: NORMAL PERICARDIAL EFFUSION: NONE AORTIC ROOT: NORMAL LEFT VENTRICULAR WALL MOTION: NORMAL DOPPLER/COLOR FLOW: NORMAL COMMENTS: 1. NORMAL LEFT VENTRICULAR SYSTOLIC FUNCTION, EJECTION FRACTION 60-65%, NORMAL WALL MOTION 2. NORMAL DIASTOLIC FUNCTION TECHNOLOGIST: BEN GIL
--- NOTE | 2024-11-07 17:00 | P.PN ---
Date of Service: 11/07/24 Subjective Complaining of chest pain this morning Troponins negative EKG negative Consult cardiology She reports feeling better this afternoon ROS 10 point ROS as noted above, otherwise negative Physical Exam General: Alert and oriented x3, NAD HEENT: mucus membranes moist, nare normal Head/Neck: atraumatic, neck supple Respiratory: symmetrical chest expansion, no accessory muscles used, lungs clear on ausultation Cardiac: Regular rate and rhythm, S1-S2 present Extremities: No edema present, peripheral pulses 2+ Abdominal: soft on palpation, NT/ND Neurological: clear speech, appropriate Vitals Reviewed Problem list Dyspnea secondary to bilateral pneumonia Nausea Hypokalemia Anxiety Cognitive communication deficit CVA Dementia Depressive disorder Dysphagia Heart disease Hyperlipidemia Schizophrenia Hepatitis C Assessment and Plan Dyspnea secondary to bilateral pneumonia Nausea -Ciprofloxacin - Currently on room air - Monitor WBC and fever - Zofran - Follow blood and sputum culture Chest pain r/o ACS -Consult cardiology -trend troponin -ECHO WNL -aspirin and lipitor -continuos telemetry Hypokalemia - Replace - Potassium trend 2.4/3.0 Anxiety Cognitive communication deficit CVA Dementia Depressive disorder Dysphagia Heart disease Hyperlipidemia Schizophrenia Hepatitis C - Supportive care - Continue home medications as appropriate DVT PPx Lovenox Full code LOS 2 to 3 days Discharge Plan: Home Plan to discharge in: 48 Hours Time Spent Managing Pts Care (In Minutes): 35
[2024-11-08 00:58] LABS: Magnesium 2.0 mg/dL (1.6-2.4); Potassium 3.5 mEq/L (3.5-5.1)
[2024-11-08] MEDS: POTASSIUM 25 MEQ EFFERV TAB PO ONE (02:04)
[2024-11-08 06:53] LABS: Absolute Lymphocytes (CBC) 1.9 K/uL (0.7-4.9); Hematocrit 30.9 % (36.0-45.0); Hemoglobin 10.6 g/dL (12.0-15.0); MCH 31.8 pg (27.0-35.0); MCHC 34.3 g/dL (32.0-36.0); MCV 92.6 fL (80-100); MPV 7.8 fL (7.6-11.3); Nucleated RBC Absolute Count 0.0 (0-0); Nucleated Red Blood Cells % 0.1 % (0-0); RBC Red Blood Cell Count 3.34 M/uL (3.86-4.86); White Blood Count 7.60 thou/uL (4.3-10.9)
[2024-11-08 07:05] LABS: Anion Gap 8.8 mEq/L (5.0-15.0); BUN Blood Urea Nitrogen 4 mg/dL (7-18); Glucose Level 117 mg/dL (74-106); Magnesium 1.8 mg/dL (1.6-2.4); Potassium 3.8 mEq/L (3.5-5.1)
[2024-11-08 12:38] LABS: Anion Gap 7.2 mEq/L (5.0-15.0); BUN Blood Urea Nitrogen 3.0 mg/dL (7-18); Glucose Level 124.0 mg/dL (74-106); Potassium 3.2 mEq/L (3.5-5.1)
[2024-11-08] MEDS: POTASSIUM CL SA 10 MEQ TAB PO ONE (13:33)
--- NOTE | 2024-11-08 15:41 | P.CNS ---
Date of Consult: 11/08/24 Chief Complaint: Bilateral pneumonia History of Present Illness: Patient with PMH of HTN, [place] [facility] resident was admitted to hospital for PNA, started complaining of chest pain during her hospital stay, her pain is atypical and reproducible on exam, denies history of cardiac problems, no palpitations, no syncope. Allergies Unable to Assess Allergy (Verified 11/07/24 05:44) Home medications list reviewed: Yes Home Medications: Acetaminophen [Tylenol Extra Strength] 625 mg PO Q4HR PRN 02/21/24 Ascorbic Acid [Vitamin C] 500 mg PO BID 02/21/24 Aspirin Chewable [Aspirin Chewable*] 81 mg PO DAILY 02/21/24 Atorvastatin Calcium [Lipitor] 20 mg PO BEDTIME 02/21/24 Buspirone HCl 15 mg PO BID 02/21/24 Buspirone HCl [Buspar] 5 mg PO BID 02/21/24 Calcium Carbonate [Tums Regular] 500 mg PO AC 02/21/24 Divalproex Sodium 500 mg PO BID 02/21/24 Lidocaine 4% Patch [Lidoderm 5% Patch] 1 patch TD Q12HP PRN 02/21/24 PHENYTOIN ER Cap [Dilantin ER Cap] 100 mg PO BID 02/21/24 Potassium Chloride 20 meq PO BID 02/21/24 Promethazine Tab [Phenergan] 25 mg PO Q6HP PRN 02/21/24 Sertraline [Zoloft] 200 mg PO DAILY 02/21/24 Spironolactone [Aldactone] 25 mg PO DAILY 02/21/24 levETIRAcetam [Keppra Tab] 500 mg PO BID 02/21/24 traMADol HCL [Ultram] 50 mg PO Q12HP PRN 02/21/24 Amlodipine Besylate 10 mg PO DAILY 11/06/24 Pantoprazole Sodium [Protonix] 40 mg PO 11/06/24 - Past Medical/Surgical History Diabetic: No -: Hypertension, hyperlipidemia, history of CVA -: Cholecystectomy - Social History Alcohol use: No CD- Drugs: No Caffeine use: No Place of Residence: Detention Review of Systems 10-point ROS is otherwise unremarkable Physical Examination Temp Pulse Resp BP Pulse Ox 97.9 F 96 H 15 130/59 L 96 11/08/24 12:00 11/08/24 12:00 11/08/24 12:00 11/08/24 12:11/08/24 12:00 General: Alert, In no apparent distress HEENT: Atraumatic, PERRLA, Mucous membr. moist/pink, EOMI, Sclerae nonicteric Neck: Supple, 2+ carotid pulse no bruit, No LAD, Without JVD or thyroid abnormality Respiratory: Clear to auscultation bilaterally, Normal air movement Cardiovascular: Regular rate/rhythm, Normal S1 S2 Gastrointestinal: Normal bowel sounds, No tenderness Musculoskeletal: No tenderness Integumentary: No rashes Neurological: Normal gait, Normal speech, Normal tone, Normal affect Lymphatics: No axilla or inguinal lymphadenopathy - Problems (1) Chest pain Current Visit: Yes Status: Acute Plan: atypical, troponin negative x3, can be secondary to PNA No further inpatient cardiac work up needed. outpatient follow up with cardiology for further testing Cardiology will sign off, please call with any questions. (2) HTN (hypertension) Current Visit: Yes Status: Acute Plan: continue Norvasc 10 mg daily continue to monitor by primary team. (3) Pneumonia Current Visit: Yes Status: Acute Plan: on ABX per primary team.
--- NOTE | 2024-11-08 16:11 | P.PN ---
Date of Service: 11/08/24 Subjective Eating breakfast well, she reports she is ready for discharge Recheck BMP showing hypokalemia, Will replace and recheck potassium tonight ROS 10 point ROS as noted above, otherwise negative Physical Exam General: AAO x3, NAD HEENT: MMM, PERRLA Head/Neck: atraumatic, neck supple Respiratory: symmetrical chest expansion, on RA Cardiac: Regular rate and rhythm, S1-S2 present Extremities: peripheral pulses 2+ Abdominal: soft and nontender on palpation Neurological: clear speech, appropriate Vitals Reviewed Problem list Dyspnea secondary to bilateral pneumonia Nausea Hypokalemia Anxiety Cognitive communication deficit CVA Dementia Depressive disorder Dysphagia Heart disease Hyperlipidemia Schizophrenia Hepatitis C Assessment and Plan Dyspnea secondary to bilateral pneumonia Nausea -Ciprofloxacin - Currently on room air - Monitor WBC and fever, WNL - Zofran, nausea is better - Follow blood and sputum culture Chest pain r/o ACS -Consult cardiology -trend troponin, WNL -ECHO WNL -aspirin and lipitor -continuos telemetry Hypokalemia -Monitor and replace Anxiety Cognitive communication deficit CVA Dementia Depressive disorder Dysphagia Heart disease Hyperlipidemia Schizophrenia Hepatitis C - Supportive care - Continue home medications as appropriate DVT PPx Lovenox Full code LOS 2 to 3 days Discharge Plan: Home Plan to discharge in: 48 Hours Time Spent Managing Pts Care (In Minutes): 32
--- NOTE | 2024-11-08 17:39 | P.DS ---
Admission Date: 11/06/24 Discharge Date: 11/09/24 Disposition: ROUTINE DISCHARGE Discharge Condition: GOOD Reason for Admission: Bilateral pneumonia Brief History of Present Illness: Diagnosis Dyspnea secondary to bilateral pneumonia Nausea Hypokalemia Anxiety Cognitive communication deficit CVA Dementia Depressive disorder Dysphagia Heart disease Hyperlipidemia Schizophrenia Hepatitis C [facility] 11/06/2024 Desi Gómez is an 79-year-old female with past medical history of anxiety, cognitive communication deficit,CVA, dementia, depressive disorder, dysphagia, heart disease, hyperlipidemia, schizophrenia, hepatitis C who presents to the ED from the alf with abnormal lab value of potassium 2.5. Desi complains of mild headache and generalized malaise with weakness. On evaluation in the ED potassium 2.4 Chest x-ray reports "Hazy atelectasis versus airspace disease within the lower lobes with possible small left pleural effusion" Desi will be admitted to hospitalist service for further evaluation and treatment of bilateral lower lobe pneumonia. Hospital Course: Patient was admitted and treated for the following diagnoses: Dyspnea secondary to bilateral pneumonia Nausea Hypokalemia Patient was treated with ciprofloxacin and was able to tolerate room air this admission. Blood and sputum culture with no growth to date. Patient has tolerated potassium replacement and was stable on day of discharge Chest pain r/o ACS Patient reported chest pain this admission and was seen by cardiology, Troponins trended flat, ECHO WNL, treated with aspirin and lipitor, and continuos telemetry with no acute events. Dr. Thrasher has cleared her for discharge Anxiety Cognitive communication deficit CVA Dementia Depressive disorder Dysphagia Heart disease Hyperlipidemia Schizophrenia Hepatitis C Patient was provided with supportive care and continuation of home medications as appropriate Nichelle was seen on morning rounds hemodynamically stable, Dr. Thrasher has cleared her for discharge. She is being discharged back to her long-term care facility. Physical Exam General: AAO x3, NAD Head/Neck: atraumatic, neck supple Respiratory: Clear BBS, on room air Cardiac: Normal sinus rhythm, S1-S2 present Abdominal: soft and nontender on palpation Neurological: clear speech, appropriate Vital Signs/Physical Exam: Temp Pulse Resp BP Pulse Ox 98.0 F 92 H 16 137/59 L 96 11/08/24 16:00 11/08/24 16:00 11/08/24 16:00 11/08/24 16:00 11/08/24 16:00 Laboratory Data at Discharge: WBC 7.60 thou/uL (4.3-10.9) 11/08/24 06:40 Hgb 10.6 g/dL (12.0-15.0) L D 11/08/24 06:40 Hct 30.9 % (36.0-45.0) L 11/08/24 06:40 Plt Count 250 thou/uL (152-406) D 11/08/24 06:40 PT 15.0 SECONDS (10-13.0) H 11/06/24 03:15 INR 1.34 11/06/24 03:15 APTT 31.4 SECONDS (27.2-37.4) 11/06/24 03:15 Sodium 144 mEq/L (136-145) 11/08/24 12:07 Potassium 3.2 mEq/L (3.5-5.1) L D 11/08/24 12:07 BUN 3 mg/dL (7-18) L 11/08/24 12:07 Creatinine 0.35 mg/dL (0.55-1.02) L 11/08/24 12:07 Glucose 124 mg/dL (74-106) H 11/08/24 12:07 Phosphorus 1.9 mg/dL (2.5-4.9) L 11/08/24 06:40 Magnesium 1.8 mg/dL (1.6-2.4) 11/08/24 06:40 Home Medications: Acetaminophen [Tylenol Extra Strength] 625 mg PO Q4HR PRN 02/21/24 Ascorbic Acid [Vitamin C*] 500 mg PO BID 02/21/24 Aspirin Chewable [Aspirin Chewable*] 81 mg PO DAILY 02/21/24 Atorvastatin Calcium [Lipitor*] 20 mg PO BEDTIME 02/21/24 Buspirone HCl 15 mg PO BID 02/21/24 Buspirone HCl [Buspar*] 5 mg PO BID 02/21/24 Calcium Carbonate [Tums Regular*] 500 mg PO AC 02/21/24 Divalproex Sodium 500 mg PO BID 02/21/24 Lidocaine 4% Patch [Lidoderm 5% Patch*] 1 patch TD Q12HP PRN 02/21/24 PHENYTOIN ER Cap [Dilantin ER Cap*] 100 mg PO BID 02/21/24 Potassium Chloride 20 meq PO BID 02/21/24 Promethazine Tab [Phenergan*] 25 mg PO Q6HP PRN 02/21/24 Sertraline [Zoloft*] 200 mg PO DAILY 02/21/24 Spironolactone [Aldactone*] 25 mg PO DAILY 02/21/24 levETIRAcetam [Keppra*] 500 mg PO BID 02/21/24 traMADol HCL [Ultram*] 50 mg PO Q12HP PRN 02/21/24 Amlodipine Besylate 10 mg PO DAILY 11/06/24 Pantoprazole Sodium [Protonix] 40 mg PO 11/06/24 Ciprofloxacin HCl [Cipro 500 MG Tablet] 500 mg PO BID 5 Days #10 tab 11/08/24 Potassium Chloride [K-Dur] 10 meq PO DAILY 5 Days #5 tab 11/08/24 New Medications: Ciprofloxacin HCl [Cipro 500 MG Tablet] 500 mg PO BID 5 Days #10 tab Potassium Chloride [K-Dur] 10 meq PO DAILY 5 Days #5 tab Physician Discharge Instructions: 1. Please call and schedule a follow-up appointment with your PCP in 3-5 days - Please follow-up with your PCP for medication refills/adjustments 2. Continue heart healthy diet 3. activity restrictions fall precaution 4. Return to the ED if symptoms worsen New medications Potassium 10 mg daily x 5 days Ciprofloxacin 500 mg twice daily x 5 days Diet: AHA Activity: Fall precautions Followup: MUNIR AMARAL [Primary Care Provider] -
[2024-11-09 02:25] VITALS: O2SAT 96
[2024-11-09 05:16] VITALS: BMI 24.3
[2024-11-09 06:48] LABS: Absolute Lymphocytes (CBC) 2.1 K/uL (0.7-4.9); Hematocrit 34.1 % (36.0-45.0); Hemoglobin 12.0 g/dL (12.0-15.0); MCH 32.2 pg (27.0-35.0); MCHC 35.1 g/dL (32.0-36.0); MCV 91.8 fL (80-100); MPV 7.5 fL (7.6-11.3); Nucleated RBC Absolute Count 0.0 (0-0); Nucleated Red Blood Cells % 0.0 % (0-0); RBC Red Blood Cell Count 3.72 M/uL (3.86-4.86); White Blood Count 8.00 thou/uL (4.3-10.9)
[2024-11-09 07:12] LABS: Anion Gap 7.5 mEq/L (5.0-15.0); BUN Blood Urea Nitrogen 5 mg/dL (7-18); Glucose Level 108 mg/dL (74-106); Magnesium 1.8 mg/dL (1.6-2.4); Potassium 3.5 mEq/L (3.5-5.1)
[2024-11-09 08:20] VITALS: BP 139/63; TEMP 98
[2024-11-09] MEDS: POTASS/SODIUM PHOSPHATE 1 PKT POWD.PACK PO SCH (09:35)
== END 2024-11-09 12:45 | disposition home or self-care (01) | DRG 194 ==
LOC: ER 02:46 → ERHOLD 08:36 → 2ND 09:43
PROVIDERS: ADMIT Internal Medicine; ATTEND Internal Medicine
DX: J18.9 Pneumonia, unspecified organism (principal); F03.93 Unspecified dementia, unspecified severity, with mood disturbance; F03.94 Unspecified dementia, unspecified severity, with anxiety; E87.6 Hypokalemia; I51.9 Heart disease, unspecified; I10 Essential (primary) hypertension; E78.5 Hyperlipidemia, unspecified; F20.9 Schizophrenia, unspecified; B19.20 Unspecified viral hepatitis C without hepatic coma; R41.841 Cognitive communication deficit; Z88.0 Allergy status to penicillin; Z86.73 Personal history of transient ischemic attack (TIA), and cerebral infarction without residual deficits; Z79.82 Long term (current) use of aspirin; Z79.02 Long term (current) use of antithrombotics/antiplatelets; Z90.49 Acquired absence of other specified parts of digestive tract; Z79.899 Other long term (current) drug therapy
CPT/HCPCS: 36415; 71045; 80048; 81001; 83605; 83735; 83880; 84100; 84132; 84484; 85025; 85610; 85730; 87040; 93005; 93306; 96365; 97161; 97530; 99285; J0744; J1650; J3475; J3480; J7030